=== PATIENT | male | born 1990 | race Caucasian/White ===

== ENCOUNTER 2017-07-11 17:50 | Emergency (ER) | payer OTHER ==
--- NOTE | 2017-07-11 18:10 | ED ---
Psych HPI - General Chief Complaint: Psychiatric Symptoms Stated Complaint: mental health Time Seen by Provider: 07/11/17 18:01 Source: patient, RN notes reviewed Mode of arrival: ambulatory Limitations: no limitations - History of Present Illness Initial Comments: 26-year-old male presents emergency department for psychiatric evaluation. Patient states that he an argument with his and states that this is been building up states that he is very depressed. Patient states that he does get appointment sometimes that he feels that he does not want to live anymore. He denies that he is suicidal at this time or homicidal. Denies illicit drug use or alcohol use. Patient states she does have a counselor though she is not available today. Patient does have status medication so he has not been taking them. Patient denies any physical complaints. Patient is brought to emergency department by mother. - Related Data Home Medications Medication Instructions Recorded Confirmed Beclomethasone Dipropionate [Qvar 1 puff INHALATION RT-BID 12/09/15 07/11/17 40 mcg/puff] Divalproex Sodium [Depakote] 375 mg PO BID 12/09/15 07/11/17 Montelukast Chew [Singulair Chew] 4 mg PO DAILY 12/09/15 07/11/17 Ipratropium-Albuterol Nebulize 3 ml INHALATION RT-QID PRN 07/11/17 07/11/17 [Duoneb 0.5 mg-3 mg/3 ml Soln] Loratadine [Claritin] 10 mg PO DAILY 07/11/17 07/11/17 Testosterone Unknown Dose 1 injection IM Q14D 07/11/17 07/11/17 Allergies Allergy/AdvReac Type Severity Reaction Status Date / Time carbamazepine [From Tegretol] Allergy Rash/Hives Verified 07/11/17 18:36 Review of Systems ROS Statement: Those systems with pertinent positive or pertinent negative responses have been documented in the HPI. ROS Other: All systems not noted in ROS Statement are negative. Past Medical History Past Medical History: Asthma, Seizure Disorder History of Any Multi-Drug Resistant Organisms: None Reported Past Surgical History: No Surgical Hx Reported Past Psychological History: No Psychological Hx Reported Smoking Status: Never smoker Past Alcohol Use History: None Reported, Rare Past Drug Use History: None Reported General Exam Limitations: no limitations General appearance: alert, in no apparent distress Head exam: Present: atraumatic, normocephalic, normal inspection Eye exam: Present: normal appearance, PERRL, EOMI. Absent: scleral icterus, conjunctival injection, periorbital swelling ENT exam: Present: normal exam, normal oropharynx, mucous membranes moist, TM's normal bilaterally, normal external ear exam Neck exam: Present: normal inspection, full ROM. Absent: tenderness, meningismus, lymphadenopathy Respiratory exam: Present: normal lung sounds bilaterally. Absent: respiratory distress, wheezes, rales, rhonchi, stridor Cardiovascular Exam: Present: regular rate, normal rhythm, normal heart sounds. Absent: systolic murmur, diastolic murmur, rubs, gallop, clicks GI/Abdominal exam: Present: soft, normal bowel sounds. Absent: distended, tenderness, guarding, rebound, rigid Psychiatric exam: Present: depressed Skin exam: Present: warm, dry, intact, normal color. Absent: rash Course Vital Signs 07/11/17 17:57 Temperature 98.5 F Pulse Rate 99 Respiratory 18 Rate Blood Pressure 136/75 O2 Sat by Pulse 97 Oximetry Medical Decision Making - Medical Decision Making 26-year-old male present emergency department for psychiatric evaluation. Patient was evaluated by EPS who does not recommend inpatient treatment. Patient be given outpatient resources and patient will be discharged return parameters were discussed. - Lab Data Lab Results 07/11/17 Range/Units 18:40 Urine Opiates Screen Not Detected (NotDetected) Ur Oxycodone Screen Not Detected (NotDetected) Urine Methadone Screen Not Detected (NotDetected) Ur Propoxyphene Screen Not Detected (NotDetected) Ur Barbiturates Screen Not Detected (NotDetected) U Tricyclic Antidepress Not Detected (NotDetected) Ur Phencyclidine Scrn Not Detected (NotDetected) Ur Amphetamines Screen Not Detected (NotDetected) U Methamphetamines Scrn Not Detected (NotDetected) U Benzodiazepines Scrn Not Detected (NotDetected) Urine Cocaine Screen Not Detected (NotDetected) U Marijuana (THC) Screen Not Detected (NotDetected) Disposition Clinical Impression: Adjustment reaction, Depression Disposition: HOME SELF-CARE Condition: Stable Instructions: Depression (ED) Additional Instructions: Please return to the Emergency Department if symptoms worsen or any other concerns. Referrals: Gage Abdi MD [Primary Care Provider] - 1-2 days Time of Disposition: 19:39
[2017-07-11 19:47] VITALS: BP 123/59; PULSE 62; RESP 16; TEMP 97.6
== END 2017-07-11 19:47 | disposition home or self-care (01) ==
LOC: EC 17:50 → EEVIPCON 17:50 → EC 19:47
DX: F43.20 Adjustment disorder, unspecified (principal); F32.9 Major depressive disorder, single episode, unspecified; J45.909 Unspecified asthma, uncomplicated; G40.909 Epilepsy, unspecified, not intractable, without status epilepticus; Z88.8 Allergy status to other drugs, medicaments and biological substances; Z79.51 Long term (current) use of inhaled steroids; Z79.899 Other long term (current) drug therapy
CPT/HCPCS: 80306; 82075; 99284

== ENCOUNTER 2017-10-18 14:37 | Emergency (ER) | payer OTHER ==
[2017-10-18 14:54] VITALS: BP 151/82; PULSE 78; RESP 18; TEMP 98.6
--- NOTE | 2017-10-18 15:10 | ED ---
Psych HPI - General Chief Complaint: Psychiatric Symptoms Stated Complaint: Mental Health Time Seen by Provider: 10/18/17 15:01 Source: patient, RN notes reviewed Mode of arrival: ambulatory - History of Present Illness Initial Comments: This is a 26-year-old male history depression also history of seizures and asthma who states she's been arguing a lot with his recently he was very depressed yesterday he actually has suicidal thoughts and ideation yesterday he states none today he did hit his head against the wall yesterday but denies any headache blurry vision nausea vomiting or other symptoms this time. He is still feeling very depressed he denies any drug drugs or alcohol. He is here for evaluation. MD Complaint: suicidal ideation, feels depressed - Related Data Home Medications Medication Instructions Recorded Confirmed Divalproex Sodium [Depakote] 375 mg PO BID 12/09/15 10/18/17 Loratadine [Claritin] 10 mg PO DAILY 07/11/17 10/18/17 Albuterol Inhaler [Ventolin Hfa 1 puff INHALATION RT-Q6H PRN 10/18/17 10/18/17 Inhaler] Beclomethasone Dipropionate [Qvar 2 puff INHALATION RT-BID 10/18/17 10/18/17 80 mcg] Mirtazapine [Remeron] 15 mg PO HS 10/18/17 10/18/17 Montelukast [Singulair] 10 mg PO DAILY 10/18/17 10/18/17 Ranitidine HCl 150 mg PO BID 10/18/17 10/18/17 Testosterone Cypionate 200 mg IM Q14D 10/18/17 10/18/17 [Depo-Testosterone] Triamcinolone 0.1% Cream [Kenalog] 1 applicatio TOPICAL BID 10/18/17 10/18/17 Allergies Allergy/AdvReac Type Severity Reaction Status Date / Time carbamazepine [From Tegretol] Allergy Rash/Hives Verified 10/18/17 15:09 Review of Systems ROS Statement: Those systems with pertinent positive or pertinent negative responses have been documented in the HPI. ROS Other: All systems not noted in ROS Statement are negative. Past Medical History Past Medical History: Asthma, Seizure Disorder History of Any Multi-Drug Resistant Organisms: None Reported Past Surgical History: No Surgical Hx Reported Past Psychological History: Depression Smoking Status: Never smoker Past Alcohol Use History: Rare Past Drug Use History: None Reported General Exam - General Exam Comments Initial Comments: This is a well-developed well-nourished awake alert oriented times 3 male. The patient x-rays a [place] Coma Scale of 15. Limitations: no limitations General appearance: alert, in no apparent distress Head exam: Present: atraumatic, normocephalic, normal inspection, other (No tenderness palpation of the scalp.) Eye exam: Present: normal appearance, PERRL, EOMI. Absent: scleral icterus, conjunctival injection, periorbital swelling ENT exam: Present: normal exam, mucous membranes moist Neck exam: Present: normal inspection. Absent: tenderness, meningismus, lymphadenopathy Respiratory exam: Present: normal lung sounds bilaterally. Absent: respiratory distress, wheezes, rales, rhonchi, stridor Cardiovascular Exam: Present: regular rate, normal rhythm, normal heart sounds. Absent: systolic murmur, diastolic murmur, rubs, gallop, clicks GI/Abdominal exam: Present: soft, normal bowel sounds. Absent: distended, tenderness, guarding, rebound, rigid Extremities exam: Present: normal inspection, full ROM, normal capillary refill. Absent: tenderness, pedal edema, joint swelling, calf tenderness Back exam: Present: normal inspection Neurological exam: Present: alert, oriented X3, CN II-XII intact Psychiatric exam: Present: depressed, flat affect Skin exam: Present: warm, dry, intact, normal color. Absent: rash Course Vital Signs 10/18/17 14:51 Temperature 98.6 F Pulse Rate 78 Respiratory 18 Rate Blood Pressure 151/82 O2 Sat by Pulse 98 Oximetry Medical Decision Making - Medical Decision Making The patient was evaluated by [facility] and the mobile crisis services. He currently is not suicidal or homicidal. He will be discharged with outpatient treatment. Disposition Clinical Impression: Depression Disposition: HOME SELF-CARE Condition: Good Instructions: Depression (ED), Anxiety (ED) Additional Instructions: Follow-up as per [facility] mobile crisis Referrals: Gage Abdi MD [Primary Care Provider] - 1-2 days
[2017-10-18 16:25] LABS: Amphetamine Screen,Urine Not Detected (NotDetected); Barbiturate Screen,Urine Not Detected (NotDetected); Benzodiazepines Screen,Urine Not Detected (NotDetected); Cocaine Screen,Urine Not Detected (NotDetected); Methadone Screen, Urine Not Detected (NotDetected); Opiate Screen,Urine Not Detected (NotDetected); Oxycodone Screen, Urine Not Detected (NotDetected); Phencyclidine Screen,Urine Not Detected (NotDetected); Tricyclic Antidepressant,Urine Not Detected (NotDetected); Urn Cannabinoid Scrn Not Detected (NotDetected)
== END 2017-10-18 16:45 | disposition home or self-care (01) ==
LOC: EC 14:37
DX: F32.9 Major depressive disorder, single episode, unspecified (principal); J45.909 Unspecified asthma, uncomplicated; G40.909 Epilepsy, unspecified, not intractable, without status epilepticus; R40.2412 Glasgow coma scale score 13-15, at arrival to emergency department; Z88.8 Allergy status to other drugs, medicaments and biological substances; Z79.51 Long term (current) use of inhaled steroids; Z79.899 Other long term (current) drug therapy
CPT/HCPCS: 80306; 82075; 99284

== ENCOUNTER 2017-12-31 00:22 | Emergency (ER) | payer OTHER ==
--- NOTE | 2017-12-31 01:11 | ED ---
General Adult HPI - General Chief complaint: Psychiatric Symptoms Stated complaint: mental health Time Seen by Provider: 12/31/17 00:29 Source: patient, RN notes reviewed, old records reviewed Mode of arrival: ambulatory Limitations: no limitations - History of Present Illness Initial comments: This is a 27-year-old male presenting to the ER today for evaluation of anger, depression, occasional suicide thoughts, not currently suicidal. No drugs or alcohol. Patient coming in for psychiatric evaluation - Related Data Home Medications Medication Instructions Recorded Confirmed Divalproex Sodium [Depakote] 375 mg PO BID 12/09/15 10/18/17 Loratadine [Claritin] 10 mg PO DAILY 07/11/17 10/18/17 Albuterol Inhaler [Ventolin Hfa 1 puff INHALATION RT-Q6H PRN 10/18/17 10/18/17 Inhaler] Beclomethasone Dipropionate [Qvar 2 puff INHALATION RT-BID 10/18/17 10/18/17 80 mcg] Mirtazapine [Remeron] 15 mg PO HS 10/18/17 10/18/17 Montelukast [Singulair] 10 mg PO DAILY 10/18/17 10/18/17 Ranitidine HCl 150 mg PO BID 10/18/17 10/18/17 Testosterone Cypionate 200 mg IM Q14D 10/18/17 10/18/17 [Depo-Testosterone] Triamcinolone 0.1% Cream [Kenalog] 1 applicatio TOPICAL BID 10/18/17 10/18/17 Allergies Allergy/AdvReac Type Severity Reaction Status Date / Time carbamazepine [From Tegretol] Allergy Rash/Hives Verified 12/31/17 00:25 Review of Systems ROS Statement: Those systems with pertinent positive or pertinent negative responses have been documented in the HPI. ROS Other: All systems not noted in ROS Statement are negative. Past Medical History Past Medical History: Asthma, Seizure Disorder History of Any Multi-Drug Resistant Organisms: None Reported Past Surgical History: No Surgical Hx Reported Past Psychological History: Depression Smoking Status: Never smoker Past Alcohol Use History: Rare Past Drug Use History: None Reported General Exam Limitations: no limitations General appearance: alert, in no apparent distress Head exam: Present: atraumatic, normocephalic, normal inspection Eye exam: Present: normal appearance, PERRL, EOMI. Absent: scleral icterus, conjunctival injection, periorbital swelling ENT exam: Present: normal exam, mucous membranes moist Neck exam: Present: normal inspection. Absent: tenderness, meningismus, lymphadenopathy Respiratory exam: Present: normal lung sounds bilaterally. Absent: respiratory distress, wheezes, rales, rhonchi, stridor Cardiovascular Exam: Present: regular rate, normal rhythm, normal heart sounds. Absent: systolic murmur, diastolic murmur, rubs, gallop, clicks GI/Abdominal exam: Present: soft, normal bowel sounds. Absent: distended, tenderness, guarding, rebound, rigid Extremities exam: Present: normal inspection, full ROM, normal capillary refill. Absent: tenderness, pedal edema, joint swelling, calf tenderness Back exam: Present: normal inspection Neurological exam: Present: alert, oriented X3, CN II-XII intact Psychiatric exam: Present: normal affect, normal mood Skin exam: Present: warm, dry, intact, normal color. Absent: rash Course Vital Signs 12/31/17 00:24 Temperature 98 F Pulse Rate 89 Respiratory 20 Rate Blood Pressure 141/89 O2 Sat by Pulse 98 Oximetry Medical Decision Making - Medical Decision Making 27 male the ER for psychiatric evaluation, patient seen by psychiatric team here in the ER, okay to follow up on an outpatient basis, no threat to himself or others. - Lab Data Lab Results 12/31/17 Range/Units 01:07 Urine Opiates Screen Not Detected (NotDetected) Ur Oxycodone Screen Not Detected (NotDetected) Urine Methadone Screen Not Detected (NotDetected) Ur Propoxyphene Screen Not Detected (NotDetected) Ur Barbiturates Screen Not Detected (NotDetected) U Tricyclic Antidepress Not Detected (NotDetected) Ur Phencyclidine Scrn Not Detected (NotDetected) Ur Amphetamines Screen Not Detected (NotDetected) U Methamphetamines Scrn Not Detected (NotDetected) U Benzodiazepines Scrn Not Detected (NotDetected) Urine Cocaine Screen Not Detected (NotDetected) U Marijuana (THC) Screen Not Detected (NotDetected) Disposition Clinical Impression: Depression, Adjustment reaction Disposition: HOME SELF-CARE Condition: Good Instructions: Depression (ED) Referrals: Gage Abdi MD [Primary Care Provider] - 1-2 days
[2017-12-31 01:35] LABS: Amphetamine Screen,Urine Not Detected (NotDetected); Barbiturate Screen,Urine Not Detected (NotDetected); Benzodiazepines Screen,Urine Not Detected (NotDetected); Cocaine Screen,Urine Not Detected (NotDetected); Methadone Screen, Urine Not Detected (NotDetected); Opiate Screen,Urine Not Detected (NotDetected); Oxycodone Screen, Urine Not Detected (NotDetected); Phencyclidine Screen,Urine Not Detected (NotDetected); Tricyclic Antidepressant,Urine Not Detected (NotDetected); Urn Cannabinoid Scrn Not Detected (NotDetected)
[2017-12-31 02:53] VITALS: BP 133/79; PULSE 95; RESP 18; TEMP 98.4
== END 2017-12-31 02:52 | disposition home or self-care (01) ==
LOC: EC 00:22
DX: F43.20 Adjustment disorder, unspecified (principal); F32.9 Major depressive disorder, single episode, unspecified; R45.851 Suicidal ideations; J45.909 Unspecified asthma, uncomplicated; G40.909 Epilepsy, unspecified, not intractable, without status epilepticus; Z79.51 Long term (current) use of inhaled steroids; Z79.899 Other long term (current) drug therapy; Z88.8 Allergy status to other drugs, medicaments and biological substances
CPT/HCPCS: 80306; 82075; 99284

== ENCOUNTER 2018-03-16 22:24 | Emergency (ER) | payer OTHER ==
[2018-03-16 22:39] VITALS: RESP 18
--- NOTE | 2018-03-16 23:05 | XR ---
EXAMINATION TYPE: XR hand complete LT DATE OF EXAM: 03/16/2018 COMPARISON: NONE HISTORY: Metacarpal pain TECHNIQUE: 3 views FINDINGS: I see no fracture nor dislocation. Metacarpals are intact. There are no erosions. Carpal don meron are intact. IMPRESSION: Negative left hand exam.
--- NOTE | 2018-03-16 23:30 | ED ---
General Adult HPI - General Chief complaint: Extremity Injury, Upper Stated complaint: Hand Injury Time Seen by Provider: 03/16/18 22:50 Source: patient, RN notes reviewed, old records reviewed Mode of arrival: ambulatory Limitations: no limitations - History of Present Illness Initial comments: This is a 27-year-old male the ER for evaluation. Patient has left hand pain left hand injury secondary to punching wall. Patient's complaining of pain and swelling to his left hand. No other complaints - Related Data Home Medications Medication Instructions Recorded Confirmed Divalproex Sodium [Depakote] 375 mg PO BID 12/09/15 10/18/17 Loratadine [Claritin] 10 mg PO DAILY 07/11/17 10/18/17 Albuterol Inhaler [Ventolin Hfa 1 puff INHALATION RT-Q6H PRN 10/18/17 10/18/17 Inhaler] Beclomethasone Dipropionate [Qvar 2 puff INHALATION RT-BID 10/18/17 10/18/17 80 mcg] Mirtazapine [Remeron] 15 mg PO HS 10/18/17 10/18/17 Montelukast [Singulair] 10 mg PO DAILY 10/18/17 10/18/17 Ranitidine HCl 150 mg PO BID 10/18/17 10/18/17 Testosterone Cypionate 200 mg IM Q14D 10/18/17 10/18/17 [Depo-Testosterone] Triamcinolone 0.1% Cream [Kenalog] 1 applicatio TOPICAL BID 10/18/17 10/18/17 Allergies Allergy/AdvReac Type Severity Reaction Status Date / Time carbamazepine [From Tegretol] Allergy Rash/Hives Verified 03/16/18 22:38 Review of Systems ROS Statement: Those systems with pertinent positive or pertinent negative responses have been documented in the HPI. ROS Other: All systems not noted in ROS Statement are negative. Past Medical History Past Medical History: Asthma, Seizure Disorder History of Any Multi-Drug Resistant Organisms: None Reported Past Surgical History: No Surgical Hx Reported Past Psychological History: Depression Smoking Status: Never smoker Past Alcohol Use History: Rare Past Drug Use History: None Reported General Exam Limitations: no limitations General appearance: alert, in no apparent distress Head exam: Present: atraumatic, normocephalic, normal inspection Eye exam: Present: normal appearance, PERRL, EOMI. Absent: scleral icterus, conjunctival injection, periorbital swelling ENT exam: Present: normal exam, mucous membranes moist Neck exam: Present: normal inspection. Absent: tenderness, meningismus, lymphadenopathy Respiratory exam: Present: normal lung sounds bilaterally. Absent: respiratory distress, wheezes, rales, rhonchi, stridor Cardiovascular Exam: Present: regular rate, normal rhythm, normal heart sounds. Absent: systolic murmur, diastolic murmur, rubs, gallop, clicks GI/Abdominal exam: Present: soft, normal bowel sounds. Absent: distended, tenderness, guarding, rebound, rigid Extremities exam: Present: normal inspection, full ROM, normal capillary refill , other ((Tender and edema). Absent: tenderness, pedal edema, joint swelling, calf tenderness Back exam: Present: normal inspection Neurological exam: Present: alert, oriented X3, CN II-XII intact Psychiatric exam: Present: normal affect, normal mood Skin exam: Present: warm, dry, intact, normal color. Absent: rash Course Vital Signs 03/16/18 22:35 Temperature 98.7 F Pulse Rate 84 Respiratory 18 Rate Blood Pressure 143/87 O2 Sat by Pulse 97 Oximetry Medical Decision Making - Medical Decision Making Plan I male the ER for evaluation, punching wall, no fracture noted. Patient can be discharged home, continued ice rest and anti-inflammatories - Radiology Data Radiology results: report reviewed (Left hand x-ray negative for traumatic injury), image reviewed Disposition Clinical Impression: Contusion of left hand Disposition: HOME SELF-CARE Condition: Good Instructions: Contusion in Adults (ED) Is patient prescribed a controlled substance at d/c from ED?: No Referrals: Gage Abdi MD [Primary Care Provider] - 1-2 days
[2018-03-17 02:07] VITALS: BP 129/79; PULSE 77; TEMP 98.4
== END 2018-03-17 02:07 | disposition home or self-care (01) ==
LOC: EC 22:24
DX: S60.222A Contusion of left hand, initial encounter (principal); J45.909 Unspecified asthma, uncomplicated; G40.909 Epilepsy, unspecified, not intractable, without status epilepticus; Z79.51 Long term (current) use of inhaled steroids; Z79.890 Hormone replacement therapy; Z79.899 Other long term (current) drug therapy; Z88.8 Allergy status to other drugs, medicaments and biological substances; W22.01XA Walked into wall, initial encounter
CPT/HCPCS: 82075; 99284

== ENCOUNTER → 2019-02-02 | Outpatient (CLI) | payer OTHER ==
--- NOTE | 2019-02-02 12:09 | CONS ---
CONSULTATION DATE OF SERVICE: 02/02/2019 This 28-year-old gentleman had been evaluated in the sleep center for significant excessive daytime sleepiness and multiple awakenings from sleep. HISTORY OF PRESENT ILLNESS/SLEEP-WAKE EVALUATION: Patient has irregular sleep schedule usually goes to bed around 1 or to 3 a.m. and gets out of bed at 5:30 a.m. because his wakes up at that time and then he sleeps again from 10:30 a.m. until 1 p.m. He has mild snoring. He has multiple awakenings from sleep. Some of them related to the baby at home. Positive history of episodes of sleepwalking and sleep talking. Questionable history of hypnagogic hallucinations. During the naps, patient denied any significant dreams. During the day, he is extremely sleepy. [place] Sleepiness Scale is 24. PAST MEDICAL HISTORY: Positive for epilepsy, asthma, acid reflux, mildly mentally impairment. MEDICATIONS: Divalproex, ranitidine, montelukast, vitamin D supplement. SOCIAL HISTORY: Negative for smoking or using alcohol. FAMILY HISTORY: Hypertension, diabetes, mental illness, cancer. REVIEW OF SYSTEMS: Extreme sleepiness during the day. PHYSICAL EXAMINATION: During physical exam, a gentleman without distress. VITAL SIGNS: BP 127/64, HR 86, RR 16, height 5 feet 7 inches, weight 238 pounds, body mass index 37.2, temperature 96.9, oxygen saturation at room air 97%. HEENT: PERRLA, EOMI. Oropharynx low position of soft palate. Mallampati 3. Restriction of nasal breathing. Wide neck 18 inches in circumference. NECK: Supple, no JVD. Thyroid is not palpable. LUNGS: Clear to percussion and to auscultation. Good air exchange. No wheezing or rhonchi. HEART: S1, S2 regular. No murmurs, gallops, or rubs. ABDOMEN: Slightly obese. EXTREMITIES: No clubbing or cyanosis. MANAGER CASE: Awake, alert, and oriented X3. Cranial nerves 2 to 7 intact. There is no fasciculation or atrophy. noted. No focal deficits observed. IMPRESSION: 1. Snoring, multiple awakenings from sleep, low position of soft palate, wide neck, possible obstructive sleep apnea-hypopnea syndrome. 2. Significant excessive daytime sleepiness. [place] Sleepiness Scale is in extremely high range of 24. Differential diagnosis includes hypersomnia and narcolepsy. 3. Irregular sleep schedule with possible insufficient amount of sleep. 4. History of mildly mentally impairments since childhood. 5. History of epilepsy. 6. History of asthma. 7. Acid reflux. PLAN: 1. Polysomnography for evaluation of patient's breathing during sleep. 2. CPAP/BiPAP titration if sleep study confirms obstructive sleep apnea-hypopnea syndrome. 3. Preferable position during sleep on the side. 4. No driving if patient feels any sleepiness. 5. I will see patient for follow up visit to explain results of testing and following plan. 6. Multiple sleep latency test if sleep study will be negative for obstructive sleep apnea-hypopnea syndrome. Thank you very much for referring this patient for consultation. Sincerely, Ad Sheth MD, PhD, FAASM Diplomat of [employer] [employer] [employer] Copy Reader of [facility] [place] MMODL / MEGN: [id number] /
== END | disposition home or self-care (01) ==
LOC: SLEEP 10:33
PROVIDERS: ATTEND Internal Medicine
DX: M27.8 Other specified diseases of jaws (principal); R40.0 Somnolence; R06.83 Snoring; G47.23 Circadian rhythm sleep disorder, irregular sleep wake type; G40.909 Epilepsy, unspecified, not intractable, without status epilepticus; J45.909 Unspecified asthma, uncomplicated; K21.9 Gastro-esophageal reflux disease without esophagitis; Z86.59 Personal history of other mental and behavioral disorders; E66.9 Obesity, unspecified; Z79.899 Other long term (current) drug therapy; Z83.3 Family history of diabetes mellitus; Z68.37 Body mass index [BMI] 37.0-37.9, adult
CPT/HCPCS: 99211

== ENCOUNTER 2020-03-16 19:50 | Emergency (ER) | payer OTHER ==
[2020-03-16 20:09] VITALS: BP 133/86; PULSE 94; RESP 20; TEMP 98.3
--- NOTE | 2020-03-16 21:14 | ED ---
General Adult HPI - General Chief complaint: Psychiatric Symptoms Stated complaint: Mental health Time Seen by Provider: 03/16/20 20:14 Source: patient Mode of arrival: ambulatory Limitations: no limitations - History of Present Illness Initial comments: Dictation was produced using Clicker dictation software. please excuse any grammatical, word or spelling errors. This patient was cared for during a federal and state declared state of emergency secondary to Covid 19 Chief Complaint: 29-year-old male presents with depression. History of Present Illness: 29-year-old male presents today with depression. Patient states he feels guilty about Wednesday he got caught looking on the computer. He states that it upset his . Patient feels really guilty about that he's been depressed and presents today for his depression. Patient has any suicidal or homicidal ideation. Denies any visual auditory hallucinations. Patient does not go into detail about what he feels guilty about. Patient also complains of some numbness ongoing for several months of his third and fourth toe on his left foot. States that he feels a little tingly in the toes. He is not sure if he stubbed his foot several months ago. The ROS documented in this emergency department record has been reviewed and confirmed by me. Those systems with pertinent positive or negative responses have been documented in the HPI. All other systems are other negative and/or noncontributory. PHYSICAL EXAM: General Impression: Alert and oriented x3, not in acute distress HEENT: Normocephalic atraumatic, extra-ocular movements intact, pupils equal and reactive to light bilaterally, mucous membranes moist. Cardiovascular: Heart regular rate and rhythm Chest: Able to complete full sentences, no retractions, no tachypnea Abdomen: abdomen soft, non-tender, non-distended, no organomegaly Musculoskeletal: Pulses present and equal in all extremities, no peripheral edema Left foot: Does appear to have good cap refill. Radial pulse and PT pulses are palpable Motor: no focal deficits noted Neurological: CN II-XII grossly intact, no focal motor or sensory deficits noted Skin: Intact with no visualized rashes Psych: Normal affect and mood ED course: 29-year-old male presents with depression. Patient psych stable at this time is not exhibiting any signs of psychosis. Patient not suicidal or homicidal. Vital signs upon arrival are within acceptable limits. Foot x-rays are unremarkable. Patient medically cleared for EPS evaluation.Patient was advised by EPS. Patient will be discharged. He does have outpatient counseling with the [facility]. Patient is agreeable with plan. - Related Data Home Medications Medication Instructions Recorded Confirmed Divalproex Sodium [Depakote] 375 mg PO BID 12/09/15 10/18/17 Loratadine [Claritin] 10 mg PO DAILY 07/11/17 10/18/17 Albuterol Inhaler (Mhu) [Ventolin 1 puff INHALATION RT-Q6H PRN 10/18/17 10/18/17 Hfa Inhaler] Beclomethasone Dipropionate [Qvar 2 puff INHALATION RT-BID 10/18/17 10/18/17 80 mcg] Mirtazapine [Remeron] 15 mg PO HS 10/18/17 10/18/17 Montelukast [Singulair] 10 mg PO DAILY 10/18/17 10/18/17 Ranitidine HCl 150 mg PO BID 10/18/17 10/18/17 Testosterone Cypionate 200 mg IM Q14D 10/18/17 10/18/17 [Depo-Testosterone] Triamcinolone 0.1% Cream [Kenalog 1 applicatio TOPICAL BID 10/18/17 10/18/17 0.1% Cream] Allergies Allergy/AdvReac Type Severity Reaction Status Date / Time carbamazepine [From Tegretol] Allergy Rash/Hives Verified 03/16/20 20:09 Review of Systems ROS Statement: Those systems with pertinent positive or pertinent negative responses have been documented in the HPI. ROS Other: All systems not noted in ROS Statement are negative. Past Medical History Past Medical History: Asthma, Seizure Disorder History of Any Multi-Drug Resistant Organisms: None Reported Past Surgical History: No Surgical Hx Reported Past Psychological History: Depression Smoking Status: Never smoker Past Alcohol Use History: Rare Past Drug Use History: None Reported General Exam Limitations: no limitations Course Vital Signs 03/16/20 20:05 Temperature 98.3 F Pulse Rate 94 Respiratory 20 Rate Blood Pressure 133/86 O2 Sat by Pulse 99 Oximetry Disposition Clinical Impression: Depression Disposition: HOME SELF-CARE Condition: Good Instructions (If sedation given, give patient instructions): Depression (ED) Is patient prescribed a controlled substance at d/c from ED?: No Referrals: Gage Abdi MD [Primary Care Provider] - 1-2 days Time of Disposition: 00:35
--- NOTE | 2020-03-16 21:23 | XR ---
EXAMINATION TYPE: XR foot complete LT DATE OF EXAM: 03/16/2020 COMPARISON: NONE HISTORY: 29-year-old male stubbed toe 2 months ago, pain TECHNIQUE: 3 views FINDINGS: No acute fracture, subluxation, or dislocation is seen. No periostitis or osteolysis. IMPRESSION: No acute osseous abnormality seen.
== END 2020-03-17 01:32 | disposition home or self-care (01) ==
LOC: EC 19:50
DX: F32.9 Major depressive disorder, single episode, unspecified (principal); R20.0 Anesthesia of skin; R20.2 Paresthesia of skin; J45.909 Unspecified asthma, uncomplicated; G40.909 Epilepsy, unspecified, not intractable, without status epilepticus; Z79.899 Other long term (current) drug therapy; Z88.8 Allergy status to other drugs, medicaments and biological substances
CPT/HCPCS: 82075; 99284

== ENCOUNTER 2020-12-24 05:18 | Inpatient (IN) | payer OTHER ==
[2020-12-24] MEDS ORDERED: ALBUTEROL HFA INHALER INHALATION STA (05:45)
[2020-12-24] MEDS ORDERED: ACETAMINOPHEN TAB 500 MG TAB PO STA (05:45)
[2020-12-24] MEDS ORDERED: KETOROLAC 15 MG/ML 1 ML VIAL IVP STA (05:46)
[2020-12-24] MEDS ORDERED: DEXAMETHASONE SOD PHOSPHATE 10 MG/ML 1 ML VIAL IV STA (05:46)
[2020-12-24] MEDS ORDERED: SODIUM CHLORIDE 0.9% 500 ML 500 ML IV STA (05:46)
[2020-12-24] MEDS ORDERED: SODIUM CHLORIDE 0.9% 1,000 ML IV STA ×4 (05:46→06:57)
--- NOTE | 2020-12-24 05:46 | ED ---
Fever HPI - General Chief Complaint: Upper Respiratory Infection Stated Complaint: Cough Time Seen by Provider: 12/24/20 05:23 Source: patient, RN notes reviewed, old records reviewed Mode of arrival: ambulatory Limitations: no limitations - History of Present Illness Initial Comments: This is a 30-year-old male to the ER for evaluation patient comes in today for evaluation regarding severe shortness of breath. Patient states that he has no other significant complaints. Patient has shortness of breath persistent here in the ER with fever weakness. Patient denies coronavirus contact. Does have history of asthma and has had prior pneumonia MD Complaint: fever, malaise, weakness -: days(s) Temperature Source: subjective Context: sick contacts Associated Symptoms: myalgias, sore throat, cough, chest pain, shortness of breath Treatments Prior to Arrival: none - Related Data Home Medications Medication Instructions Recorded Confirmed Loratadine [Claritin] 10 mg PO HS 07/11/17 12/24/20 Montelukast [Singulair] 10 mg PO HS 10/18/17 12/24/20 Cholecalciferol (Vitamin D3) 125 mcg PO HS 12/24/20 12/24/20 [Vitamin D3 (5000 Iu)] Divalproex ER [Depakote ER] 500 mg PO BID 12/24/20 12/24/20 Ergocalciferol [Vitamin D2 (1250 1,250 mcg PO TU 12/24/20 12/24/20 Mcg = 41374 Iu)] Omeprazole 20 mg PO HS 12/24/20 12/24/20 Allergies Allergy/AdvReac Type Severity Reaction Status Date / Time carbamazepine [From Tegretol] Allergy Rash/Hives Verified 12/24/20 07:16 Review of Systems ROS Statement: Those systems with pertinent positive or pertinent negative responses have been documented in the HPI. ROS Other: All systems not noted in ROS Statement are negative. Past Medical History Past Medical History: Asthma, Seizure Disorder History of Any Multi-Drug Resistant Organisms: None Reported Past Surgical History: No Surgical Hx Reported Past Psychological History: Depression Smoking Status: Never smoker Past Alcohol Use History: Rare Past Drug Use History: None Reported - Past Family History Father History Unknown: Yes Family Medical History: Unable to Obtain Additional Family Medical History / Comment(s): Pt does not know his father. Mother Family Medical History: Diabetes Mellitus General Exam Limitations: no limitations General appearance: alert, in no apparent distress, anxious Head exam: Present: atraumatic, normocephalic, normal inspection Eye exam: Present: normal appearance, PERRL, EOMI. Absent: scleral icterus, conjunctival injection, periorbital swelling ENT exam: Present: normal exam, mucous membranes moist Neck exam: Present: normal inspection. Absent: tenderness, meningismus, lymphadenopathy Respiratory exam: Present: respiratory distress, wheezes, accessory muscle use, decreased breath sounds, prolonged expiratory. Absent: rales, rhonchi, stridor Cardiovascular Exam: Present: normal rhythm, tachycardia, normal heart sounds. Absent: systolic murmur, diastolic murmur, rubs, gallop, clicks GI/Abdominal exam: Present: soft, normal bowel sounds. Absent: distended, tenderness, guarding, rebound, rigid Extremities exam: Present: normal inspection, full ROM, normal capillary refill. Absent: tenderness, pedal edema, joint swelling, calf tenderness Back exam: Present: normal inspection Neurological exam: Present: alert, oriented X3, CN II-XII intact Psychiatric exam: Present: normal affect, normal mood Skin exam: Present: warm, dry, intact, normal color. Absent: rash Course Vital Signs 12/24/20 12/24/20 12/24/20 05:20 05:43 06:13 Temperature 101.4 F H 102.3 F H 102 F H Pulse Rate 126 H 120 H 122 H Respiratory 26 H 18 18 Rate Blood Pressure 121/69 126/74 100/87 O2 Sat by Pulse 90 L 94 L 91 L Oximetry 12/24/20 12/24/20 12/24/20 07:32 08:14 08:17 Temperature 100.2 F H Pulse Rate 115 H 111 H 94 Respiratory 18 18 18 Rate Blood Pressure 113/66 130/70 O2 Sat by Pulse 95 94 L 94 L Oximetry 12/24/20 12/24/20 12/24/20 08:22 10:59 11:30 Temperature 98.5 F Pulse Rate 115 H 95 89 Respiratory 16 18 16 Rate Blood Pressure 132/74 O2 Sat by Pulse 93 L Oximetry 12/24/20 12/24/20 12/24/20 11:42 11:45 15:01 Temperature Pulse Rate 103 H 98 98 Respiratory 18 18 18 Rate Blood Pressure 149/43 107/58 O2 Sat by Pulse 95 97 Oximetry 12/24/20 12/24/20 12/24/20 15:23 15:33 17:36 Temperature 98.4 F Pulse Rate 101 H 81 97 Respiratory 18 16 18 Rate Blood Pressure 108/67 O2 Sat by Pulse 95 Oximetry 12/24/20 12/24/20 18:57 19:10 Temperature Pulse Rate 81 87 Respiratory 16 16 Rate Blood Pressure O2 Sat by Pulse Oximetry - Reevaluation(s) Reevaluation #1: Medical record is reviewed Patient feels significantly improved well here in the ER Patient spoke with results, questions answered Patient is shortness of breath is persistent, will admit for continued care Medical Decision Making - Medical Decision Making 30 male DF for evaluation of shortness of breath. Patient will be admitted for continued supportive care, IV antibiotics secondary to clinical pneumonia treatment of asthma - Lab Data Result diagrams: 12/24/20 06:02 12/24/20 06:02 Lab Results 12/24/20 12/24/20 12/24/20 Range/Units 06:02 06:02 06:02 WBC 19.6 H (3.8-10.6) k/uL RBC 5.10 (4.30-5.90) m/uL Hgb 14.5 (13.0-17.5) gm/dL Hct 41.9 (39.0-53.0) % MCV 82.1 (80.0-100.0) fL MCH 28.5 (25.0-35.0) pg MCHC 34.7 (31.0-37.0) g/dL RDW 12.9 (11.5-15.5) % Plt Count 287 (150-450) k/uL MPV 6.4 Neutrophils % 87 % Lymphocytes % 7 % Monocytes % 5 % Eosinophils % 0 % Basophils % 0 % Neutrophils # 17.2 H (1.3-7.7) k/uL Lymphocytes # 1.3 (1.0-4.8) k/uL Monocytes # 0.9 (0-1.0) k/uL Eosinophils # 0.1 (0-0.7) k/uL Basophils # 0.0 (0-0.2) k/uL PT 11.0 (9.0-12.0) sec INR 1.0 (<1.2) APTT 23.4 (22.0-30.0) sec D-Dimer <0.17 (<0.60) mg/L FEU Sodium 135 L (137-145) mmol/L Potassium 3.8 (3.5-5.1) mmol/L Chloride 101 (98-107) mmol/L Carbon Dioxide 24 (22-30) mmol/L Anion Gap 10 mmol/L BUN 18 (9-20) mg/dL Creatinine 0.68 (0.66-1.25) mg/dL Est GFR (CKD-EPI)AfAm >90 (>60 ml/min/1.73 sqM) Est GFR (CKD-EPI)NonAf >90 (>60 ml/min/1.73 sqM) Glucose 105 H (74-99) mg/dL Plasma Lactic Acid Christiano (0.7-2.0) mmol/L Calcium 10.4 H (8.4-10.2) mg/dL Magnesium 1.5 L (1.6-2.3) mg/dL Total Bilirubin 1.9 H (0.2-1.3) mg/dL AST 37 (17-59) U/L ALT 36 (4-49) U/L Alkaline Phosphatase 150 H (38-126) U/L Lactate Dehydrogenase 542 (313-618) U/L C-Reactive Protein 162.8 H (<10.0) mg/L Total Protein 8.0 (6.3-8.2) g/dL Albumin 4.8 (3.5-5.0) g/dL Coronavirus (PCR) (Not Detectd) 12/24/20 12/24/20 Range/Units 06:02 06:02 WBC (3.8-10.6) k/uL RBC (4.30-5.90) m/uL Hgb (13.0-17.5) gm/dL Hct (39.0-53.0) % MCV (80.0-100.0) fL MCH (25.0-35.0) pg MCHC (31.0-37.0) g/dL RDW (11.5-15.5) % Plt Count (150-450) k/uL MPV Neutrophils % % Lymphocytes % % Monocytes % % Eosinophils % % Basophils % % Neutrophils # (1.3-7.7) k/uL Lymphocytes # (1.0-4.8) k/uL Monocytes # (0-1.0) k/uL Eosinophils # (0-0.7) k/uL Basophils # (0-0.2) k/uL PT (9.0-12.0) sec INR (<1.2) APTT (22.0-30.0) sec D-Dimer (<0.60) mg/L FEU Sodium (137-145) mmol/L Potassium (3.5-5.1) mmol/L Chloride (98-107) mmol/L Carbon Dioxide (22-30) mmol/L Anion Gap mmol/L BUN (9-20) mg/dL Creatinine (0.66-1.25) mg/dL Est GFR (CKD-EPI)AfAm (>60 ml/min/1.73 sqM) Est GFR (CKD-EPI)NonAf (>60 ml/min/1.73 sqM) Glucose (74-99) mg/dL Plasma Lactic Acid Christiano 1.1 (0.7-2.0) mmol/L Calcium (8.4-10.2) mg/dL Magnesium (1.6-2.3) mg/dL Total Bilirubin (0.2-1.3) mg/dL AST (17-59) U/L ALT (4-49) U/L Alkaline Phosphatase (38-126) U/L Lactate Dehydrogenase (313-618) U/L C-Reactive Protein (<10.0) mg/L Total Protein (6.3-8.2) g/dL Albumin (3.5-5.0) g/dL Coronavirus (PCR) Not Detected (Not Detectd) - EKG Data -: EKG Interpreted by Me (EKG shows sinus tachycardia of 111, HI 1:30 QRS 108 QTc 456) - Radiology Data Radiology results: report reviewed (Chest x-ray for bilateral pneumonia), image reviewed Disposition Clinical Impression: Community acquired pneumonia, Asthmatic bronchitis, Fever Narrative: r COVID Disposition: ADMITTED IP TO THIS HOSP Condition: Fair Is patient prescribed a controlled substance at d/c from ED?: No
[2020-12-24 06:31] LABS: ALT 36 U/L (4-49); AST 37 U/L (17-59); African American GFR (CKD) >90 (>60 ml/min/1.73 sqM); Albumin 4.8 g/dL (3.5-5.0); Alkaline Phosphatase 150 U/L (38-126); Anion Gap 10 mmol/L; Blood Urea Nitrogen 18 mg/dL (9-20); Calcium 10.4 mg/dL (8.4-10.2); Carbon Dioxide 24 mmol/L (22-30); Chloride 101 mmol/L (98-107); Glucose 105 mg/dL (74-99); LDH 542 U/L (313-618); Magnesium 1.5 mg/dL (1.6-2.3); Non-African American GFR(CKD) >90 (>60 ml/min/1.73 sqM); Potassium 3.8 mmol/L (3.5-5.1); Sodium 135 mmol/L (137-145); Total Bilirubin 1.9 mg/dL (0.2-1.3)
[2020-12-24 06:37] LABS: Basophils % (A) 0 %; Eosinophils # (A) 0.1 k/uL (0-0.7); Eosinophils % (A) 0 %; HCT 41.9 % (39.0-53.0); HGB 14.5 gm/dL (13.0-17.5); Lymphocytes # (A) 1.3 k/uL (1.0-4.8); Lymphocytes % (A) 7 %; MCH 28.5 pg (25.0-35.0); MCHC 34.7 g/dL (31.0-37.0); MCV 82.1 fL (80.0-100.0); Mean Platelet Volume 6.4; Monocytes # (A) 0.9 k/uL (0-1.0); Monocytes % (A) 5 %; Neutrophils # (A) 17.2 k/uL (1.3-7.7); Neutrophils % (A) 87 %; Platelet Count 287 k/uL (150-450); RDW 12.9 % (11.5-15.5); WBC 19.6 k/uL (3.8-10.6)
[2020-12-24 06:43] LABS: D-Dimer <0.17 mg/L FEU (<0.60); Partial Thromboplastin Time 23.4 sec (22.0-30.0)
[2020-12-24] MEDS ORDERED: PNEUMONIA PROTOCOL UTILIZED 1 EACH MISC PO PRN (06:57)
[2020-12-24] MEDS ORDERED: AZITHROMYCIN 500 MG in SODIUM CHLORIDE 0.9% 250 ML IVPB STA (06:57)
--- NOTE | 2020-12-24 07:04 | XR ---
EXAM: XR Chest, 1 View CLINICAL HISTORY: ITS.REASON XR Reason: Suspected COVID-19 pneumonia TECHNIQUE: Frontal view of the chest. COMPARISON: No relevant prior studies available. FINDINGS: Lungs: Bibasilar patchy opacities. Pleural space: Unremarkable. No pneumothorax. Heart: Unremarkable. No cardiomegaly. Mediastinum: Unremarkable. Bones/joints: Unremarkable. IMPRESSION: Bibasilar patchy opacities which may be due to multifocal infection in the appropriate clinical setting.
[2020-12-24 07:22] LABS: C Reactive Protein 162.8 mg/L (<10.0)
[2020-12-24] MEDS: SODIUM CHLORIDE 0.9% 1,000 ML IV SCH ×2 (07:36→17:40)
[2020-12-24] MEDS: ALBUTEROL NEBULIZED 2.5 MG/3 ML INHALATION SCH ×4 (08:11→18:54)
[2020-12-24] MEDS: IPRATROPIUM-ALBUTEROL 3 ML NEB INHALATION SCH ×4 (08:12→18:56)
--- NOTE | 2020-12-24 13:57 | P.HPIM ---
History of Present Illness This is a pleasant 30 years old male with past medical history of asthma, GERD, pneumonia and seizure, depression, nonsmoker. He is a patient of Dr. Abdi Presented because of coughing, not feeling well. Associated with dyspnea since Wednesday night about 3 days ago. Also he has sweating but no documented fever He denies smoking, alcohol or illicit drugs He denies and symptoms of depression or suicidal ideation On admission he has a fever of 102.3. He has normal rest of vitals. Labs showed leukocytosis of 19.6. Rest of CBC, BMP and liver enzymes are unremarkable. Lactic acid is normal at 1.1 and magnesium was low at 1.5 which is been replaced per protocol. Coronavirus not detected 2 D-dimer is negative for less than 0.17 EKG showed sinus tachycardia at [address] T changes, QTC is 456 Chest x-ray: By basilar patchy opacity which may be due to multifocal infection in the appropriate clinical setting Depression, not in active tissue Review of Systems CONSTITUTIONAL: No fever, no malaise, no fatigue. HEENT: No recent visual problems or hearing problems. Denied any sore throat. CARDIOVASCULAR: No orthopnea, PND, no palpitations, no syncope. PULMONARY: No chest wall tenderness, no hemoptysis. GASTROINTESTINAL: No diarrhea, no nausea, no vomiting, no abdominal pain. Normoactive bowel sounds. NEUROLOGICAL: No headaches, no weakness, no numbness. HEMATOLOGICAL: Denies any bleeding or petechiae. GENITOURINARY: Denies any burning micturition, frequency, or urgency. MUSCULOSKELETAL/RHEUMATOLOGICAL: Denies any joint pain, swelling, or any muscle pain. ENDOCRINE: Denies any polyuria or polydipsia. Past Medical History Past Medical History: Asthma, GERD/Reflux, Pneumonia, Seizure Disorder Additional Past Medical History / Comment(s): Bronchitis, last seizure many years ago, gallstones, sinus allergies. History of Any Multi-Drug Resistant Organisms: None Reported Past Surgical History: No Surgical Hx Reported Past Anesthesia/Blood Transfusion Reactions: Unable to Obtain Additional Past Anesthesia/Blood Transfusion Reaction / Comment(s): Pt has never had surgery Smoking Status: Never smoker - Past Family History Father History Unknown: Yes Family Medical History: Unable to Obtain Additional Family Medical History / Comment(s): Pt does not know his father. Mother Family Medical History: Diabetes Mellitus Medications and Allergies Home Medications Medication Instructions Recorded Confirmed Type Loratadine [Claritin] 10 mg PO HS 07/11/17 12/24/20 History Montelukast [Singulair] 10 mg PO HS 10/18/17 12/24/20 History Cholecalciferol (Vitamin D3) 125 mcg PO HS 12/24/20 12/24/20 History [Vitamin D3 (5000 Iu)] Divalproex ER [Depakote ER] 500 mg PO BID 12/24/20 12/24/20 History Ergocalciferol [Vitamin D2 (1250 1,250 mcg PO TU 12/24/20 12/24/20 History Mcg = 47054 Iu)] Omeprazole 20 mg PO HS 12/24/20 12/24/20 History Allergies Allergy/AdvReac Type Severity Reaction Status Date / Time carbamazepine [From Tegretol] Allergy Rash/Hives Verified 12/24/20 07:16 Physical Exam Vitals: Vital Signs Temp Pulse Resp BP Pulse Ox 12/24/20 11:45 98 18 149/43 95 12/24/20 11:42 103 H 18 12/24/20 11:30 89 16 12/24/20 10:59 98.5 F 95 18 132/74 93 L 12/24/20 08:22 115 H 16 12/24/20 08:17 94 18 130/70 94 L 12/24/20 08:14 111 H 18 94 L 12/24/20 07:32 100.2 F H 115 H 18 113/66 95 12/24/20 06:13 102 F H 122 H 18 100/87 91 L 12/24/20 05:43 102.3 F H 120 H 18 126/74 94 L 12/24/20 05:20 101.4 F H 126 H 26 H 121/69 90 L Intake and Output 12/23/20 12/24/20 12/24/20 22:59 06:59 14:59 Other: Weight 108.862 kg 108.862 kg GENERAL: The patient is alert and oriented x3, not in any acute distress. Well developed, well nourished. HEENT: Pupils are round and equally reacting to light. EOMI. No scleral icterus. No conjunctival pallor. Normocephalic, atraumatic. No pharyngeal erythema. No thyromegaly. CARDIOVASCULAR: S1 and S2 present. No murmurs, rubs, or gallops. PULMONARY: Chest is clear to auscultation, no wheezing or crackles. ABDOMEN: Soft, nontender, nondistended, normoactive bowel sounds. No palpable organomegaly. MUSCULOSKELETAL: No joint swelling or deformity. EXTREMITIES: No cyanosis, clubbing, or pedal edema. NEUROLOGICAL: Gross neurological examination did not reveal any focal deficits. SKIN: No rashes. No petechiae Results CBC & Chem 7: 12/24/20 06:02 12/24/20 06:02 Labs: Abnormal Lab Results - Last 24 Hours (Table) 12/24/20 12/24/20 Range/Units 06:02 06:02 WBC 19.6 H (3.8-10.6) k/uL Neutrophils # 17.2 H (1.3-7.7) k/uL Sodium 135 L (137-145) mmol/L Glucose 105 H (74-99) mg/dL Calcium 10.4 H (8.4-10.2) mg/dL Magnesium 1.5 L (1.6-2.3) mg/dL Total Bilirubin 1.9 H (0.2-1.3) mg/dL Alkaline Phosphatase 150 H (38-126) U/L C-Reactive Protein 162.8 H (<10.0) mg/L Thrombosis Risk Factor Assmnt - Choose All That Apply Any of the Below Risk Factors Present?: Yes Each Factor Represents 1 point: Obesity (BMI >25), Serious lung disease incl. pneumonia (< 1month) Other Risk Factors: Yes Other congenital or acquired thrombophilia - If yes, enter type in comment: No Thrombosis Risk Factor Assessment Total Risk Factor Score: 2 Thrombosis Risk Factor Assessment Level: Low Risk Assessment and Plan Assessment: Bilateral lower lobe community-acquired pneumonia Sepsis secondary to above with leukocytosis, fever and tachycardia GERD History of asthma History of seizure History of depression, not an active issue Continue with Rocephin and Zithromax. Follow-up culture results. Plan: This is a pleasant 30 years old male who presents with bibasilar pneumonia. Follow-up culture results. Continue with Rocephin and Zithromax. Continue with normal saline. Pulmonary team consult Labs and medication were reviewed.. Continue same treatment. Continue with symptomatic treatment. Resume home medication. Monitor lytes and vitals. DVT and GI prophylaxis. Further recommendations depends on the clinical course of the patient DVT prophylaxis: Subcutaneous heparin GI Prophylaxis: Pepcid Prognosis is guarded
--- NOTE | 2020-12-24 14:35 | P.CNPUL ---
History of Present Illness Consult date: 12/24/20 Requesting physician: Christiano Canales Reason for consult: pneumonia Chief complaint: Off fever and shortness of breath. History of present illness: This is a 30-year-old white male with history of multiple medical problems including seizure disorder, GERD, depression, nonsmoker, history of asthma, patient presented with 2 days history of increased shortness of breath, cough, fever, but no chills, patient describes symptoms of worsening GERD and he had no seizure in the last 20 years. Chest x-ray showed minimal bibasilar infiltrates. Screening for coronary virus PCR was negative. Patient was noted to have temperature as high as 102.3, started on antibiotics empirically, in the form of Rocephin and Zithromax, and I was asked to see him on consultation. Patient was placed on 2 L nasal cannula, and O2 saturation was 93%. Patient denies any chest pain, denies any hemoptysis. Denies any recent exposure to any sick patient's or anyone with covid 19 infection. Review of Systems CONSTITUTIONAL: Positive fever, no malaise, no fatigue. HEENT: Negative CARDIOVASCULAR: No orthopnea, PND, no palpitations, no syncope. PULMONARY: As noted in HPI. GASTROINTESTINAL: History of severe GERD. Eyes negative NEUROLOGICAL: History of seizure disorder has not had a seizure in the last 20 years. HEMATOLOGICAL: Negative, no clotting bleeding or bruising GENITOURINARY: No dysuria frequency urgency or hematuria.. MUSCULOSKELETAL/RHEUMATOLOGICAL: Negative ENDOCRINE: Denies any polyuria or polydipsia. I curetted: Denies any symptoms of depression. Past Medical History Past Medical History: Asthma, GERD/Reflux, Pneumonia, Seizure Disorder Additional Past Medical History / Comment(s): Bronchitis, last seizure many years ago, gallstones, sinus allergies. History of Any Multi-Drug Resistant Organisms: None Reported Past Surgical History: No Surgical Hx Reported Past Anesthesia/Blood Transfusion Reactions: Unable to Obtain Additional Past Anesthesia/Blood Transfusion Reaction / Comment(s): Pt has never had surgery Smoking Status: Never smoker - Past Family History Father History Unknown: Yes Family Medical History: Unable to Obtain Additional Family Medical History / Comment(s): Pt does not know his father. Mother Family Medical History: Diabetes Mellitus Medications and Allergies Home Medications Medication Instructions Recorded Confirmed Type Loratadine [Claritin] 10 mg PO HS 07/11/17 12/24/20 History Montelukast [Singulair] 10 mg PO HS 10/18/17 12/24/20 History Cholecalciferol (Vitamin D3) 125 mcg PO HS 12/24/20 12/24/20 History [Vitamin D3 (5000 Iu)] Divalproex ER [Depakote ER] 500 mg PO BID 12/24/20 12/24/20 History Ergocalciferol [Vitamin D2 (1250 1,250 mcg PO TU 12/24/20 12/24/20 History Mcg = 64194 Iu)] Omeprazole 20 mg PO HS 12/24/20 12/24/20 History Allergies Allergy/AdvReac Type Severity Reaction Status Date / Time carbamazepine [From Tegretol] Allergy Rash/Hives Verified 12/24/20 07:16 Physical Exam Vitals: Vital Signs Temp Pulse Resp BP Pulse Ox 12/24/20 11:45 98 18 149/43 95 12/24/20 11:42 103 H 18 12/24/20 11:30 89 16 12/24/20 10:59 98.5 F 95 18 132/74 93 L 12/24/20 08:22 115 H 16 12/24/20 08:17 94 18 130/70 94 L 12/24/20 08:14 111 H 18 94 L 12/24/20 07:32 100.2 F H 115 H 18 113/66 95 12/24/20 06:13 102 F H 122 H 18 100/87 91 L 12/24/20 05:43 102.3 F H 120 H 18 126/74 94 L 12/24/20 05:20 101.4 F H 126 H 26 H 121/69 90 L Intake and Output 12/23/20 12/24/20 12/24/20 22:59 06:59 14:59 Other: Weight 108.862 kg 108.862 kg Physical Exam: Revealed a 30-year-old white male, pleasant, in no distress, on 2 L nasal cannula. Head: Atraumatic, normocephalic. HEENT:[ PERRLA, EOMI, nonicteric. Neck is supple.] [No neck masses.] [No thyromegaly.] [No JVD.] Chest: [Symmetrical chest expansion, fine crackles at the bases especially at the right base. No rhonchi no wheezes. Cardiac Exam: [Normal S1 and S2, no S3 gallop, no murmur.] Abdomen: [Soft, nontender, no megaly, no rebound, no guarding, normal bowel sounds.] Extremities: [No clubbing, no edema, no cyanosis.] Neurological Exam: [No focal neurologic deficit.] Alert oriented 3. Skin: No rashes. Psychiatric: Normal mood affect and normal mental status examination. Musculoskeletal: No deformities noted limitation range of motion. Results - Laboratory Findings CBC and BMP: 12/24/20 06:02 12/24/20 06:02 PT/INR, D-dimer PT 11.0 sec (9.0-12.0) 12/24/20 06:02 INR 1.0 (<1.2) 12/24/20 06:02 D-Dimer <0.17 mg/L FEU (<0.60) 12/24/20 06:02 Abnormal lab findings: Abnormal Labs 12/24/20 12/24/20 06:02 06:02 WBC 19.6 H Neutrophils # 17.2 H Sodium 135 L Glucose 105 H Calcium 10.4 H Magnesium 1.5 L Total Bilirubin 1.9 H Alkaline Phosphatase 150 H C-Reactive Protein 162.8 H - Diagnostic Findings Chest x-ray: image reviewed (As noted in HPI.) Assessment and Plan Assessment: Impression: Acute bilateral community-acquired pneumonia, strongly doubt aspiration pneumoni a. History of asthma, presently stable, in active. History of seizure disorder. History of depression. History of GERD. Recommendation: Agree with the present treatment plan including Zithromax and Rocephin. Resume home meds. GI and DVT prophylaxis. Consider discharge planning in the next 24 hours if he does not demonstrate any worsening in his pulmonary status, and no fever over the next 24 hours. We'll continue to follow. Time with Patient: Greater than 30
[2020-12-24] MEDS: HEPARIN SODIUM,PORCINE 5,000 UNIT/ML 1 ML VIAL SQ SCH (21:56)
[2020-12-24] MEDS: FAMOTIDINE 20 MG/2 ML VIAL IV SCH (21:56)
[2020-12-25] MEDS: SODIUM CHLORIDE 0.9% 1,000 ML IV SCH ×2 (03:35→17:56)
[2020-12-25 05:26] LABS: Basophils % (A) 0 %; Eosinophils # (A) 0.1 k/uL (0-0.7); Eosinophils % (A) 1 %; HCT 38.1 % (39.0-53.0); HGB 13.1 gm/dL (13.0-17.5); Lymphocytes # (A) 1.5 k/uL (1.0-4.8); Lymphocytes % (A) 8 %; MCHC 34.5 g/dL (31.0-37.0); MCV 84.1 fL (80.0-100.0); Mean Platelet Volume 6.8; Monocytes # (A) 0.8 k/uL (0-1.0); Monocytes % (A) 4 %; Neutrophils # (A) 17.4 k/uL (1.3-7.7); Neutrophils % (A) 87 %; Platelet Count 303 k/uL (150-450); RBC 4.53 m/uL (4.30-5.90); RDW 12.6 % (11.5-15.5); WBC 19.9 k/uL (3.8-10.6)
[2020-12-25] MEDS: IPRATROPIUM-ALBUTEROL 3 ML NEB INHALATION SCH ×4 (08:54→20:33)
[2020-12-25] MEDS: ALBUTEROL NEBULIZED 2.5 MG/3 ML INHALATION SCH (09:13)
[2020-12-25] MEDS: HEPARIN SODIUM,PORCINE 5,000 UNIT/ML 1 ML VIAL SQ SCH ×2 (09:42→21:33)
[2020-12-25] MEDS: AZITHROMYCIN 500 MG TAB PO SCH (09:42)
[2020-12-25] MEDS: FAMOTIDINE 20 MG/2 ML VIAL IV SCH ×2 (09:42→21:31)
--- NOTE | 2020-12-25 11:55 | P.PN ---
Subjective This is a pleasant 30 years old male with past medical history of asthma, GERD, pneumonia and seizure, depression, nonsmoker. He is a patient of Dr. Abdi Presented because of coughing, and dyspnea for 3 days ago. On admission he has a fever of 102.3. Labs showed leukocytosis of 19.6. Chest x-ray: By basilar patchy opacity which may be due to multifocal infection in the appropriate clinical setting Patient was diagnosed with Patient was diagnosed with community-acquired pneumonia, who was treated with ceftriaxone and azithromycin IV fluid. Patient showed interval improvement Patient feels much better and he feels he can go home soon. Pending pulmonary team to clear the patient for discharge after 24 hours with no fever per their recommendations Objective - Vital Signs Vital signs: Vital Signs Temp 98.0 F 12/25/20 02:00 Pulse 108 H 12/25/20 09:11 Resp 16 12/25/20 02:00 BP 125/74 12/25/20 02:00 Pulse Ox 94 L 12/25/20 02:00 Intake & Output 12/24/20 12/25/20 12/25/20 18:59 06:59 18:59 Weight 108.862 kg Other: Voiding Method Toilet Toilet # Voids 1 - Exam GENERAL: The patient is alert and oriented x3, not in any acute distress. Well developed, well nourished. HEENT: Pupils are round and equally reacting to light. EOMI. No scleral icterus. No conjunctival pallor. Normocephalic, atraumatic. No pharyngeal erythema. No thyromegaly. CARDIOVASCULAR: S1 and S2 present. No murmurs, rubs, or gallops. PULMONARY: Chest is clear to auscultation, no wheezing or crackles. ABDOMEN: Soft, nontender, nondistended, normoactive bowel sounds. No palpable organomegaly. MUSCULOSKELETAL: No joint swelling or deformity. EXTREMITIES: No cyanosis, clubbing, or pedal edema. NEUROLOGICAL: Gross neurological examination did not reveal any focal deficits. SKIN: No rashes. no petechiae. - Labs CBC & Chem 7: 12/25/20 04:25 12/24/20 06:02 Labs: Abnormal Lab Results - Last 24 Hours (Table) 12/24/20 12/25/20 Range/Units 06:02 04:25 WBC 19.9 H (3.8-10.6) k/uL Hct 38.1 L (39.0-53.0) % Neutrophils # 17.4 H (1.3-7.7) k/uL Procalcitonin 3.92 H (0.02-0.09) ng/mL Microbiology - Last 24 Hours (Table) 12/24/20 06:02 Blood Culture - Preliminary Blood No Growth after 24 hours Assessment and Plan Assessment: Bilateral lower lobe community-acquired pneumonia Sepsis secondary to above with leukocytosis, fever and tachycardia GERD History of asthma History of seizure History of depression, not an active issue Continue with Rocephin and Zithromax. Follow-up culture results. Plan: This is a pleasant 30 years old male who presents with bibasilar pneumonia. Follow-up culture results. Continue with Rocephin and Zithromax. Continue with normal saline. Pulmonary team consult Labs and medication were reviewed.. Continue same treatment. Continue with symptomatic treatment. Resume home medication. Monitor lytes and vitals. DVT and GI prophylaxis. Further recommendations depends on the clinical course of the patient DVT prophylaxis: Subcutaneous heparin GI Prophylaxis: Pepcid Prognosis is guarded
[2020-12-25] MEDS ORDERED: ALPRAZolam 0.5 MG TAB PO PRN (15:21)
--- NOTE | 2020-12-25 15:22 | P.PN ---
Subjective Progress Note Date: 12/25/20 Principal diagnosis: Community acquired pneumonia This is a 30-year-old white male with history of multiple medical problems including seizure disorder, GERD, depression, nonsmoker, history of asthma, patient presented with 2 days history of increased shortness of breath, cough, fever, but no chills, patient describes symptoms of worsening GERD and he had no seizure in the last 20 years. Chest x-ray showed minimal bibasilar infiltrates. Screening for coronary virus PCR was negative. Patient was noted to have temperature as high as 102.3, started on antibiotics empirically, in the form of Rocephin and Zithromax, and I was asked to see him on consultation. Patient was placed on 2 L nasal cannula, and O2 saturation was 93%. Patient denies any chest pain, denies any hemoptysis. Denies any recent exposure to any sick patient's or anyone with covid 19 infection. The patient is seen today 12/25/2020 in follow-up in the observation unit. He is currently up ambulating in his room. Awake and alert in no acute distress. He denies any worsening shortness of breath, cough or congestion. Doing quite a bit better today. He has been afebrile. Maintaining O2 saturation in the 90s on room air. Blood culture reveals no growth. White count 19.9. Hemoglobin 13.1. He has been maintained on ceftriaxone and azithromycin along with bronchodilators. Pepcid for GI prophylaxis. Heparin for DVT prophylaxis. 0.9 normal saline at 100 ML's per hour. Objective - Vital Signs Vital signs: Vital Signs Temp 98.0 F 12/25/20 02:00 Pulse 107 H 12/25/20 13:11 Resp 16 12/25/20 02:00 BP 125/74 12/25/20 02:00 Pulse Ox 94 L 12/25/20 02:00 Intake & Output 12/24/20 12/25/20 12/25/20 18:59 06:59 18:59 Weight 108.862 kg Other: Voiding Method Toilet Toilet # Voids 1 - Exam GENERAL EXAM: Alert, active, pleasant 30-year-old gentleman, regular, comfortable in no apparent distress. HEAD: Normocephalic. EYES: Normal reaction of pupils, equal size. NOSE: Clear with pink turbinates. THROAT: No erythema or exudates. NECK: No masses, no JVD. CHEST: No chest wall deformity. LUNGS: Equal air entry with faint crackles in the posterior bases CVS: S1 and S2 normal with no audible murmur, regular rhythm. ABDOMEN: No hepatosplenomegaly, normal bowel sounds, no guarding or rigidity. SPINE: No scoliosis or deformity SKIN: No rashes CENTRAL NERVOUS SYSTEM: No focal deficits, tone is normal in all 4 extremities. EXTREMITIES: There is no peripheral edema. No clubbing, no cyanosis. Peripheral pulses are intact. - Labs CBC & Chem 7: 12/25/20 04:25 12/24/20 06:02 Labs: Abnormal Lab Results - Last 24 Hours (Table) 12/24/20 12/25/20 Range/Units 06:02 04:25 WBC 19.9 H (3.8-10.6) k/uL Hct 38.1 L (39.0-53.0) % Neutrophils # 17.4 H (1.3-7.7) k/uL Procalcitonin 3.92 H (0.02-0.09) ng/mL Microbiology - Last 24 Hours (Table) 12/24/20 06:02 Blood Culture - Preliminary Blood No Growth after 24 hours Assessment and Plan Assessment: 1 Acute bilateral community-acquired pneumonia, doubt aspiration 2 History of mild intermittent chronic bronchial asthma, currently inactive in stable 3 History of seizure disorder, last seizure greater than 20 years ago 4 History of depression 5 History of gastroesophageal reflux disease Plan: The patient was seen and evaluated by Dr. Villegas He is cleared for discharge from the pulmonary standpoint Complete a course of antibiotics Follow-up with his PCP for follow-up chest x-ray I, the cosigning physician, performed a history & physical examination of the patient. Lungs sounds faint crackles in the posterior bases. Maintaining good O2 saturations in the 90s on room air. I discussed the assessment and plan of care with my nurse practitioner, Esperanza Ball. I attest to the above note as dictated by her.
[2020-12-25] MEDS ORDERED: PANTOPRAZOLE 40 MG TABLET PO SCH (21:00)
[2020-12-25] MEDS ORDERED: MONTELUKAST 10 MG TAB PO SCH (21:00)
[2020-12-25] MEDS: DIVALPROEX ER 500 MG TAB.ER.24H PO SCH (21:30)
[2020-12-26] MEDS: SODIUM CHLORIDE 0.9% 1,000 ML IV SCH ×2 (02:31→07:23)
[2020-12-26] MEDS: IPRATROPIUM-ALBUTEROL 3 ML NEB INHALATION SCH ×2 (07:18→11:27)
[2020-12-26] MEDS: AZITHROMYCIN 500 MG TAB PO SCH (07:23)
[2020-12-26] MEDS: FAMOTIDINE 20 MG/2 ML VIAL IV SCH (07:23)
[2020-12-26] MEDS: DIVALPROEX ER 500 MG TAB.ER.24H PO SCH (07:23)
[2020-12-26] MEDS: HEPARIN SODIUM,PORCINE 5,000 UNIT/ML 1 ML VIAL SQ SCH (08:08)
[2020-12-26] MEDS ORDERED: HEPARIN SODIUM,PORCINE/PF 5,000 UNIT/0.5 ML SYRINGE SQ SCH (09:00)
[2020-12-26 09:19] LABS: Basophils % (A) 0 %; Eosinophils # (A) 0.1 k/uL (0-0.7); Eosinophils % (A) 1 %; HCT 38.8 % (39.0-53.0); HGB 13.3 gm/dL (13.0-17.5); Lymphocytes # (A) 3.2 k/uL (1.0-4.8); Lymphocytes % (A) 23 %; MCHC 34.2 g/dL (31.0-37.0); MCV 84.8 fL (80.0-100.0); Mean Platelet Volume 6.2; Monocytes # (A) 0.6 k/uL (0-1.0); Monocytes % (A) 4 %; Neutrophils # (A) 9.8 k/uL (1.3-7.7); Neutrophils % (A) 70 %; Platelet Count 325 k/uL (150-450); RBC 4.57 m/uL (4.30-5.90); RDW 12.8 % (11.5-15.5)
[2020-12-26 09:26] VITALS: BP 130/79; RESP 18; TEMP 98.4
[2020-12-26 11:35] LABS: Glucose,Whole Blood 83 mg/dL (75-99)
[2020-12-26 11:41] VITALS: PULSE 92
--- NOTE | 2020-12-27 08:57 | P.DS ---
Providers Date of admission: 12/24/20 06:57 Attending physician: Catrina Choi Consults: 12/24/20 06:57 Consult Physician Routine Consulting Provider: Lisha Sullivan Consult Reason/Comments: hypoxia Do you want consulting provider notified?: Yes Primary care physician: Gage Abdi Hospital Course: Diagnoses: Bilateral lower lobe community-acquired pneumonia Sepsis secondary to above with leukocytosis, fever and tachycardia GERD History of asthma History of seizure History of depression, not an active issue Continue with Rocephin and Zithromax. Follow-up culture results. Hospital course: This is a pleasant 30 years old male with past medical history of asthma, GERD, pneumonia and seizure, depression, nonsmoker. He is a patient of Dr. Abdi Presented because of coughing, and dyspnea for 3 days ago. On admission he has a fever of 102.3. Labs showed leukocytosis of 19.6. Chest x-ray: By basilar patchy opacity which may be due to multifocal infection in the appropriate clinical setting Patient was diagnosed with community-acquired pneumonia, who was treated with ceftriaxone and azithromycin IV fluid. Patient showed interval improvement Patient has been evaluated by pluck separator. Patient himself improved since yesterday and was going to be discharged however he agrees to stay 1 more day, this morning patient was walking in the room, asymptomatic with no chest pain or dyspnea or coughing. Fever subsided more than 24 hours. Leukocytosis improving down to 14. Patient is very eager to go home today. Pulmonary team. For discharge Problems and management plan were discussed with the patient and he verbalized understanding and acceptance Patient was found stable and can be discharged home however he needs follow-up as an outpatient. Patient was instructed to follow up with PCP Dr. Abdi within one week and patient agrees. Also patient was instructed he needs to repeat his chest x-ray with his PCP and he agrees Also instructed to follow up with pluck separator Dr. Sullivan in 2-3 weeks and he agrees to call and make appointments Physical exam Gen: patient is a AAOx3, no distress CVS: S1-S2, RRR, no murmur Lungs: B/L CTA, no wheezing Abdomen: soft, no distention, no tenderness, positive bowel sounds Extremity: no leg edema or induration Time spent more than 35 minutes Patient Condition at Discharge: Fair Plan - Discharge Summary Discharge Rx Participant: No New Discharge Prescriptions: New Azithromycin [Zithromax] 500 mg PO DAILY 4 Days #4 tab Cefuroxime Axetil [Ceftin] 500 mg PO BID 7 Days #14 tab Continue Loratadine [Claritin] 10 mg PO HS Montelukast [Singulair] 10 mg PO HS Omeprazole 20 mg PO HS Divalproex ER [Depakote ER] 500 mg PO BID Ergocalciferol [Vitamin D2 (1250 Mcg = 21277 Iu)] 1,250 mcg PO TU Cholecalciferol (Vitamin D3) [Vitamin D3 (5000 Iu)] 125 mcg PO HS Discharge Medication List Loratadine [Claritin] 10 mg PO HS 07/11/17 [History] Montelukast [Singulair] 10 mg PO HS 10/18/17 [History] Cholecalciferol (Vitamin D3) [Vitamin D3 (5000 Iu)] 125 mcg PO HS 12/24/20 [History] Divalproex ER [Depakote ER] 500 mg PO BID 12/24/20 [History] Ergocalciferol [Vitamin D2 (1250 Mcg = 52614 Iu)] 1,250 mcg PO TU 12/24/20 [History] Omeprazole 20 mg PO HS 12/24/20 [History] Azithromycin [Zithromax] 500 mg PO DAILY 4 Days #4 tab 12/26/20 [Rx] Cefuroxime Axetil [Ceftin] 500 mg PO BID 7 Days #14 tab 12/26/20 [Rx] Follow up Appointment(s)/Referral(s): Gage Abdi MD [Primary Care Provider] - 12/30/20 11:30 am (This will be a televisit. Please call office prior to your appointment to set up. Thank you.) Lisha Sullivan MD [STAFF PHYSICIAN] - 2 Weeks Activity/Diet/Wound Care/Special Instructions: Heart healthy diet Activity is restricted till you see your doctor Discharge Disposition: HOME SELF-CARE
[2020-12-31] MEDS ORDERED: ERGOCALCIFEROL 1,250 MCG (50,000 IU) CAPSULE PO SCH (09:00)
== END 2020-12-26 13:12 | disposition home or self-care (01) | DRG 871 ==
LOC: EC 05:18 → 1SOBS 06:57 → 4SSUR 12-25 15:37
PROVIDERS: ADMIT Hospitalist; ATTEND Hospitalist
DX: A41.9 Sepsis, unspecified organism (principal); J18.9 Pneumonia, unspecified organism; F32.9 Major depressive disorder, single episode, unspecified; G40.909 Epilepsy, unspecified, not intractable, without status epilepticus; J45.909 Unspecified asthma, uncomplicated; K21.9 Gastro-esophageal reflux disease without esophagitis; R09.02 Hypoxemia; Z79.899 Other long term (current) drug therapy; Z83.3 Family history of diabetes mellitus; Z87.01 Personal history of pneumonia (recurrent); Z20.822 Contact with and (suspected) exposure to COVID-19; Z51.81 Encounter for therapeutic drug level monitoring
CPT/HCPCS: 36415; 71045; 80053; 83605; 83615; 83735; 84145; 85025; 85379; 85610; 85730; 86140; 87040; 87635; 93005; 94640; 96361; 96374; 96375; 99285

== ENCOUNTER 2022-09-18 22:57 | Inpatient (IN) | payer OTHER ==
[2022-09-18] MEDS ORDERED: IBUPROFEN 600 MG TAB PO STA (23:04)
[2022-09-18] MEDS ORDERED: ACETAMINOPHEN TAB 500 MG TAB PO STA (23:04)
[2022-09-18] MEDS ORDERED: SODIUM CHLORIDE 0.9% 1,000 ML IV STA ×2 (23:04)
[2022-09-18] MEDS ORDERED: diphenhydrAMINE 50 MG/ML 1 ML VIAL IVP STA (23:15)
[2022-09-18] MEDS ORDERED: VANCOMYCIN IV PER PHARMACY 1 EACH MISC MISCELLANE PRN (23:15)
[2022-09-18] MEDS ORDERED: DEXAMETHASONE SOD PHOSPHATE 10 MG/ML 1 ML VIAL IVP STA (23:15)
[2022-09-18] MEDS ORDERED: FAMOTIDINE 20 MG/2 ML VIAL IV STA (23:16)
[2022-09-18] MEDS ORDERED: diphenhydrAMINE 50 MG/ML 1 ML VIAL IVP PRN (23:16)
[2022-09-18] MEDS ORDERED: MORPHINE SULFATE 4 MG/ML SYRINGE IV PRN (23:16)
[2022-09-18] MEDS ORDERED: MORPHINE SULFATE 2 MG/ML SYRINGE IVP PRN (23:16)
--- NOTE | 2022-09-18 23:17 | ED ---
Fever HPI - General Chief Complaint: Skin/Abscess/Foreign Body Stated Complaint: Skin infection Time Seen by Provider: 09/18/22 22:59 Source: patient, RN notes reviewed, old records reviewed Mode of arrival: EMS Limitations: no limitations - History of Present Illness Initial Comments: This is a 31-year-old male to the emergency department for evaluation. Patient presents to 2-3 days of fever and significant painful itchy rash over face back and chest mildly on the arms. No known sick contacts no travel history was seen in urgent care today and a half ago for evaluation of similar. Patient has no known travel history no significant known sick contacts. Patient has no strange sexual contacts or IV drug abuse. MD Complaint: fever, malaise, weakness, other (Generalized body rash) -: days(s) Temperature Source: subjective Associated Symptoms: chills, myalgias, rash Treatments Prior to Arrival: none - Related Data Home Medications Medication Instructions Recorded Confirmed Loratadine [Claritin] 10 mg PO HS 07/11/17 12/24/20 Montelukast [Singulair] 10 mg PO HS 10/18/17 12/24/20 Cholecalciferol (Vitamin D3) 125 mcg PO HS 12/24/20 12/24/20 [Vitamin D3 (5000 Iu)] Divalproex ER [Depakote ER] 500 mg PO BID 12/24/20 12/24/20 Ergocalciferol [Vitamin D2 (1250 1,250 mcg PO TU 12/24/20 12/24/20 Mcg = 16845 Iu)] Omeprazole 20 mg PO HS 12/24/20 12/24/20 Previous Rx's Medication Instructions Recorded Azithromycin [Zithromax] 500 mg PO DAILY 4 Days #4 tab 12/26/20 cefUROXime axetiL [Ceftin] 500 mg PO BID 7 Days #14 tab 12/26/20 Allergies Allergy/AdvReac Type Severity Reaction Status Date / Time carbamazepine [From Tegretol] Allergy Rash/Hives Verified 12/24/20 07:16 Review of Systems ROS Statement: Those systems with pertinent positive or pertinent negative responses have been documented in the HPI. ROS Other: All systems not noted in ROS Statement are negative. Past Medical History Past Medical History: Asthma, Seizure Disorder Additional Past Medical History / Comment(s): Bronchitis, last seizure many years ago, gallstones, sinus allergies. History of Any Multi-Drug Resistant Organisms: None Reported Past Surgical History: No Surgical Hx Reported Past Anesthesia/Blood Transfusion Reactions: Unable to Obtain Additional Past Anesthesia/Blood Transfusion Reaction / Comment(s): Pt has never had surgery Past Psychological History: Depression Smoking Status: Never smoker Past Alcohol Use History: Rare Past Drug Use History: None Reported - Past Family History Father History Unknown: Yes Family Medical History: Unable to Obtain Additional Family Medical History / Comment(s): Pt does not know his father. Mother Family Medical History: Diabetes Mellitus General Exam Limitations: no limitations General appearance: alert, in no apparent distress Head exam: Present: atraumatic, normocephalic, normal inspection Eye exam: Present: normal appearance, PERRL, EOMI. Absent: scleral icterus, con junctival injection, periorbital swelling ENT exam: Present: normal exam, mucous membranes moist Neck exam: Present: normal inspection. Absent: tenderness, meningismus, lymphadenopathy Respiratory exam: Present: normal lung sounds bilaterally. Absent: respiratory distress, wheezes, rales, rhonchi, stridor Cardiovascular Exam: Present: normal rhythm, tachycardia, normal heart sounds. Absent: systolic murmur, diastolic murmur, rubs, gallop, clicks GI/Abdominal exam: Present: soft, normal bowel sounds. Absent: distended, tenderness, guarding, rebound, rigid Extremities exam: Present: normal inspection, full ROM, normal capillary refill. Absent: tenderness, pedal edema, joint swelling, calf tenderness Back exam: Present: normal inspection Neurological exam: Present: alert, oriented X3, CN II-XII intact Psychiatric exam: Present: normal affect, normal mood Skin exam: Present: warm, dry, intact, normal color, rash (Significant rash.Vesicles some ulcerations), erythema, urticaria, vesicles Course Vital Signs 09/18/22 22:59 Temperature 103.0 F H Pulse Rate 118 H Respiratory 20 Rate Blood Pressure 141/97 O2 Sat by Pulse 97 Oximetry - Reevaluation(s) Reevaluation #1: 09/18/22 23:49 Medical records reviewed Reevaluation #2: 09/19/22 00:36 Patient has no real change in symptoms although fever is improving Reevaluation #3: 09/19/22 00:36 Patient informed of results and questions are answered - Consultations Consultation #1: Spoke with sound who agrees to admit this patient Medical Decision Making - Medical Decision Making 31 male to the emergency department for evaluation patient Shahnaz for evaluation of diffuse generalized body rash severe and she and painful. Face back hands arms without travel. Patient is positive for significantly high fever and will be admitted for rule out bacteremia versus underlying severe viral illness. - Lab Data Result diagrams: 09/18/22 23:36 09/18/22 23:36 Lab Results 09/18/22 09/18/22 09/18/22 Range/Units 23:36 23:36 23:36 WBC 4.7 (3.8-10.6) k/uL RBC 4.10 L (4.30-5.90) m/uL Hgb 12.4 L (13.0-17.5) gm/dL Hct 33.9 L (39.0-53.0) % MCV 82.7 (80.0-100.0) fL MCH 30.1 (25.0-35.0) pg MCHC 36.4 (31.0-37.0) g/dL RDW 12.7 (11.5-15.5) % Plt Count 158 (150-450) k/uL MPV 7.7 PT 10.3 (9.0-12.0) sec INR 1.0 (<1.2) APTT 24.1 (22.0-30.0) sec Sodium 138 (137-145) mmol/L Potassium 3.6 (3.5-5.1) mmol/L Chloride 105 (98-107) mmol/L Carbon Dioxide 25 (22-30) mmol/L Anion Gap 8 mmol/L BUN 14 (9-20) mg/dL Creatinine 0.78 (0.66-1.25) mg/dL Est GFR (CKD-EPI)AfAm >90 (>60 ml/min/1.73 sqM) Est GFR (CKD-EPI)NonAf >90 (>60 ml/min/1.73 sqM) Glucose 92 (74-99) mg/dL Calcium 8.3 L (8.4-10.2) mg/dL Phosphorus 3.3 (2.5-4.5) mg/dL Magnesium 1.7 (1.6-2.3) mg/dL Total Bilirubin 0.9 (0.2-1.3) mg/dL AST 103 H (17-59) U/L ALT 104 H (4-49) U/L Alkaline Phosphatase 150 H (38-126) U/L Lactate Dehydrogenase 1352 H (313-618) U/L C-Reactive Protein 3.5 H (<1.0) mg/dL Total Protein 7.3 (6.3-8.2) g/dL Albumin 4.4 (3.5-5.0) g/dL - Radiology Data Radiology results: report reviewed (Chest x-rays negative for acute disease), image reviewed Disposition Clinical Impression: Fever, Weakness, Rash, Hepatitis, Dehydration Disposition: ADMITTED IP TO THIS [facility] Condition: Fair Is patient prescribed a controlled substance at d/c from ED?: No Referrals: Gage Abdi MD [Primary Care Provider] - 1-2 days Time of Disposition: 00:35
[2022-09-19] MEDS ORDERED: VANCOMYCIN 1,750 MG in SODIUM CHLORIDE 0.9% 500 ML 500 ML IVPB ONE ×2
[2022-09-19 00:02] LABS: HCT 33.9 % (39.0-53.0); HGB 12.4 gm/dL (13.0-17.5); MCH 30.1 pg (25.0-35.0); MCHC 36.4 g/dL (31.0-37.0); MCV 82.7 fL (80.0-100.0); Mean Platelet Volume 7.7; Platelet Count 158 k/uL (150-450); RDW 12.7 % (11.5-15.5); WBC 4.7 k/uL (3.8-10.6)
[2022-09-19 00:17] LABS: Partial Thromboplastin Time 24.1 sec (22.0-30.0); Prothrombin Time 10.3 sec (9.0-12.0)
[2022-09-19 00:18] LABS: ALT 104 U/L (4-49); AST 103 U/L (17-59); African American GFR (CKD) >90 (>60 ml/min/1.73 sqM); Albumin 4.4 g/dL (3.5-5.0); Alkaline Phosphatase 150 U/L (38-126); Anion Gap 8 mmol/L; Blood Urea Nitrogen 14 mg/dL (9-20); C Reactive Protein 3.5 mg/dL (<1.0); Calcium 8.3 mg/dL (8.4-10.2); Carbon Dioxide 25 mmol/L (22-30); Chloride 105 mmol/L (98-107); Glucose 92 mg/dL (74-99); LDH 1352 U/L (313-618); Magnesium 1.7 mg/dL (1.6-2.3); Non-African American GFR(CKD) >90 (>60 ml/min/1.73 sqM); Phosphorus 3.3 mg/dL (2.5-4.5); Potassium 3.6 mmol/L (3.5-5.1); Sodium 138 mmol/L (137-145); Total Bilirubin 0.9 mg/dL (0.2-1.3); Total Protein 7.3 g/dL (6.3-8.2)
--- NOTE | 2022-09-19 00:21 | XR ---
EXAMINATION TYPE: XR chest 1V portable DATE OF EXAM: 09/19/2022 COMPARISON: 12/24/2020 HISTORY: Fever TECHNIQUE: FINDINGS: There is no heart failure nor confluent pneumonic infiltrate. Costophrenic angles are clear . Bony thorax is intact. IMPRESSION: No active cardiopulmonary disease. There is clearing of the infiltrate and atelectasis at the lung bases compared to old exam.
[2022-09-19 00:49] LABS: Band Neutrophils % 23 %; Lymphocytes # (M) 1.93 k/uL (1.0-4.8); Monocytes # (M) 0.24 k/uL (0-1.0); Neutrophils % (M) 31 %; Nucleated Red Blood Cells 0 /100 WBC (0-0)
[2022-09-19 00:50] LABS: Reactive Lymphocytes Present; Total Cells Counted 200
[2022-09-19 01:40] LABS: Lactic Acid, Venous 1.3 mmol/L (0.7-2.0)
[2022-09-19] MEDS ORDERED: NALOXONE 0.4 MG/ML 1 ML VIAL IV PRN (01:47)
[2022-09-19] MEDS ORDERED: ONDANSETRON 4 MG/2 ML VIAL IVP PRN (01:47)
[2022-09-19] MEDS ORDERED: IBUPROFEN 400 MG TAB PO PRN (01:47)
--- NOTE | 2022-09-19 01:48 | US ---
EXAMINATION TYPE: US gallbladder DATE OF EXAM: 09/19/2022 COMPARISON: NONE CLINICAL HISTORY: fever. Patient states no pain. TECHNIQUE: Multiple sonographic images of the right upper quadrant are obtained. FINDINGS: EXAM MEASUREMENTS: Liver Length: 18.4 cm Gallbladder Wall: 0.2 cm CBD: 0.5 cm Right Kidney: 12.2 x 5.7 x 6.3 cm [employer] NOTES: Limited due to bowel gas and patient body habitus Pancreas: Obscured by bowel gas Liver: Enlarged in size. Coarse. Areas of focal fatty sparing seen adjacent to GB Gallbladder: wnl as visualized, limited Evidence for sonographic Umanzor's sign: neg CBD: wnl Right Kidney: No hydronephrosis or masses seen IMPRESSION: No gallstones or dilated ducts. There is probably some fatty infiltration of the liver. No ascites.
[2022-09-19] MEDS ORDERED: hydrOXYzine HCL 25 MG TAB PO ONE (02:00)
[2022-09-19] MEDS: SODIUM CHLORIDE 0.9% 1,000 ML IV SCH ×3 (02:11→22:45)
--- NOTE | 2022-09-19 04:17 | P.HPIM ---
History of Present Illness H&P Date: 09/19/22 Chief Complaint: rash 42 year old male with mild persistent asthma coming in today for evaluation of diffuse rash with papules. this has started 2- 3 days ago and has been getting worse, he got evaluated by an urgent care on Wednesday for which he was given some antibiotics, however he noticed that his rash was getting worse, the papules are involving mainly his face, head , scalp, upper chest and back and bilateral arms. denies any sick contact, denies any immunodeficient disease , denies any recent travel or hospital stay , denies any similar symptoms in the past. he denies any URI symptoms or diffuse body aches. the papules are itchy and some painful. he reports being unvaccinated against chicken pox. he has some around his mouth and possibly over his tongue. he is concerned regarding chicken pox or monkey pox blood work reviewed Constitutional: No acute distress, conversant, pleasant Eyes: Anicteric sclerae, moist conjunctiva, Pupils equal round reactive to light ENMT: NC/AT Oropharynx clear, no erythema, or exudates Neck: Supple, no masses, or JVD No carotid bruits No thyromegaly Lungs: Clear to auscultation Clear to percussion Normal respiratory effort, no accessory muscle use Cardiovascular: Heart regular in rate and rhythm, No murmurs, gallops, or rubs No peripheral edema Abdominal: Soft Nontender, no guarding, rebound or rigidity Abdomen moving with respiration Normoactive bowel sounds No hepatomegaly, No splenomegaly No palpable mass No abdominal wall hernia noted Skin: diffuse papulovesicular rash , with vesicle and papules with scabs. involving upper body over head and face, bilateral arms, chest and back Extremities: No digital cyanosis No clubbing Pedal pulses intact and symmetrical Radial pulses intact and symmetrical No calf tenderness Psychiatric: Alert and oriented to person, place and time Appropriate affect fair judgement Neuro Muscles Strength 5/5 in all 4 extremities Sensation to light touch grossly present throughout Cranial nerves II-XII grossly intact Lymphatics: no palpable cervical or supraclavicular lymph nodes 31 year old male presented with 2-3 days history of sudden onset diffuse pap ulovesicular rash over his upper body parts. diffuse papular rash with vesicles ID consult rule out chicken pox vs monkey pox symptomatic relief of pain or itching contact precautions mild persistent asthma duoneb prn full code DVT PPX mechanical Past Medical History Past Medical History: Asthma, Seizure Disorder Additional Past Medical History / Comment(s): Bronchitis, last seizure many years ago, gallstones, sinus allergies. History of Any Multi-Drug Resistant Organisms: None Reported Past Surgical History: No Surgical Hx Reported Past Anesthesia/Blood Transfusion Reactions: Unable to Obtain Additional Past Anesthesia/Blood Transfusion Reaction / Comment(s): Pt has never had surgery Past Psychological History: Depression Smoking Status: Never smoker Past Alcohol Use History: Rare Past Drug Use History: None Reported - Past Family History Father History Unknown: Yes Family Medical History: Unable to Obtain Additional Family Medical History / Comment(s): Pt does not know his father. Mother Family Medical History: Diabetes Mellitus Medications and Allergies Home Medications Medication Instructions Recorded Confirmed Type Loratadine [Claritin] 10 mg PO HS 07/11/17 12/24/20 History Montelukast [Singulair] 10 mg PO HS 10/18/17 12/24/20 History Cholecalciferol (Vitamin D3) 125 mcg PO HS 12/24/20 12/24/20 History [Vitamin D3 (5000 Iu)] Divalproex ER [Depakote ER] 500 mg PO BID 12/24/20 12/24/20 History Ergocalciferol [Vitamin D2 (1250 1,250 mcg PO TU 12/24/20 12/24/20 History Mcg = 72652 Iu)] Omeprazole 20 mg PO HS 12/24/20 12/24/20 History Azithromycin [Zithromax] 500 mg PO DAILY 4 Days #4 tab 12/26/20 Rx cefUROXime axetiL [Ceftin] 500 mg PO BID 7 Days #14 tab 12/26/20 Rx Allergies Allergy/AdvReac Type Severity Reaction Status Date / Time carbamazepine [From Tegretol] Allergy Rash/Hives Verified 12/24/20 07:16 Physical Exam Vitals: Vital Signs Temp Pulse Resp BP Pulse Ox 09/19/22 01:03 91 15 129/88 100 09/18/22 22:59 103.0 F H 118 H 20 141/97 97 Intake and Output 09/18/22 09/18/22 09/19/22 14:59 22:59 06:59 Other: Weight 108.862 kg Results CBC & Chem 7: 09/18/22 23:36 09/18/22 23:36 Labs: Abnormal Lab Results - Last 24 Hours (Table) 09/18/22 09/18/22 Range/Units 23:36 23:36 RBC 4.10 L (4.30-5.90) m/uL Hgb 12.4 L (13.0-17.5) gm/dL Hct 33.9 L (39.0-53.0) % Calcium 8.3 L (8.4-10.2) mg/dL AST 103 H (17-59) U/L ALT 104 H (4-49) U/L Alkaline Phosphatase 150 H (38-126) U/L Lactate Dehydrogenase 1352 H (313-618) U/L C-Reactive Protein 3.5 H (<1.0) mg/dL
[2022-09-19] MEDS: hydrOXYzine HCL 25 MG TAB PO SCH ×3 (08:42→22:43)
[2022-09-19] MEDS: FAMOTIDINE 20 MG/2 ML VIAL IV SCH ×2 (08:43→22:16)
[2022-09-19] MEDS: ACETAMINOPHEN TAB 325 MG TAB PO PRN ×3 (08:53→22:15)
[2022-09-19] MEDS ORDERED: VANCOMYCIN 1,500 MG in SODIUM CHLORIDE 0.9% 500 ML 500 ML IVPB SCH (09:00)
[2022-09-19 11:44] LABS: Hepatitis A Antibody IgM Nonreactive (Nonreactive); Hepatitis B Core IgM Nonreactive (Nonreactive); Hepatitis B Surface Antigen Nonreactive (Nonreactive); Hepatitis C IgG Antibody Reactive (Nonreactive)
[2022-09-19 13:54] LABS: Appearance,Urine Clear (Clear); Bilirubin,Urine Negative (Negative); Blood,Urine Negative (Negative); Color,Urine Yellow; Glucose,Urine (UA) Negative (Negative); Ketones,Urine Negative (Negative); Leukocyte Esterase,Urine Negative (Negative); Nitrite,Urine Negative (Negative); Protein,Urine Negative (Negative); Specific Gravity,Urine 1.027 (1.001-1.035)
--- NOTE | 2022-09-19 15:06 | P.PN ---
Progress Note - Text Progress Note Date: 09/19/22 Hospitalist Interval Note Patient seen and examined at bedside. Vital signs reviewed General: non toxic, no distress, appears at stated age Derm: warm, dry, multiple vesicles and papular rash mostly involving the face, bilateral arms and chest, with scabs Head: atraumatic, normocephalic, symmetric Eyes: EOMI, no lid lag, anicteric sclera Mouth: no lip lesion, mucus membranes moist Cardiovascular: S1S2 reg, no murmur, positive posterior tibial pulse bilateral, Lungs: CTA bilateral, no rhonchi, no rales , no accessory muscle use Abdominal: soft, nontender to palpation, no guarding, no appreciable organomegaly Ext: no gross muscle atrophy, no edema, no contractures Neuro: CN II-XI grossly intact, no focal neuro deficits Psych: Alert, oriented, appropriate affect Assessment/Plan: diffuse papular rash with vesicles -Likely viral in nature -Chickenpox more likely, versus monkeypox -We'll treat for Valtrex 1 g 3 times a day -ID consult -Supportive care, contact precautions mild persistent asthma duoneb prn This is an update note for patient , for full note on on this patient, see 09/19/22 at 4:16. There is no charge associated with this note.
[2022-09-19] MEDS: valACYclovir HCL 1,000 MG TABLET PO SCH ×2 (16:07→22:43)
--- NOTE | 2022-09-19 21:19 | P.CONS ---
History of Present Illness - Reason for Consult Consult date: 09/19/22 Rash and fever Requesting physician: Naresh Armenta - Chief Complaint Rash x few days - History of Present Illness Patient is a 31-year-old male with a past medical history significant for chronic hepatitis C untreated this patient currently denies having any IV drug use, patient mentioned he did develop what he described as possible folliculitis to the neck area for the patient did went to an urgent care with the patient was started on cephalexin after stopping the cephalexin patient has developed a rash to the face had as well as upper trunk area patient currently do not have any rash the palms and soles patient is complaining of significant itching associated with the rash patient denies high-grade fever or chills, however the patient did have a fever of 103F on arrival to the ER patient did have a normal white count, patient did have normal kidney function liver enzymes are elevated CRP was mildly elevated, urine has been negative hepatitis C antibodies was positive influenza RSV and covid was negative patient did have a chest x-ray reported negative for acute cardiopulmonary disease the patient was started on vancomycin and infectious disease was consulted for further management patient currently denies having any sore in his mouth or any difficulty swallowing denies having any joint swelling, the patient denies having any urethral drainage no diarrhea or any perirectal inflammation, patient mentioned he is for 6 years and no other sexual partner, currently unemployed taking care of their 2 kids and none of them has been sick Review of Systems Positive point has been mentioned in the HPI rest of the systems are negative Past Medical History Past Medical History: Asthma, Seizure Disorder Additional Past Medical History / Comment(s): Bronchitis, last seizure many years ago, gallstones, sinus allergies. History of Any Multi-Drug Resistant Organisms: None Reported Past Surgical History: No Surgical Hx Reported Past Anesthesia/Blood Transfusion Reactions: Unable to Obtain Additional Past Anesthesia/Blood Transfusion Reaction / Comm: Pt has never had surgery Past Psychological History: Depression Smoking Status: Never smoker Past Alcohol Use History: Rare Past Drug Use History: None Reported - Past Family History Father History Unknown: Yes Family Medical History: Unable to Obtain Additional Family Medical History / Comment(s): Pt does not know his father. Mother Family Medical History: Diabetes Mellitus Medications and Allergies Home Medications Medication Instructions Recorded Confirmed Type Loratadine [Claritin] 10 mg PO HS 07/11/17 09/19/22 History Montelukast [Singulair] 10 mg PO HS 10/18/17 09/19/22 History Omeprazole 20 mg PO HS 12/24/20 09/19/22 History Divalproex Sodium [Depakote] 500 mg PO BID 09/19/22 09/19/22 History valACYclovir HCL [Valtrex] 1,000 mg PO Q8H #21 tablet 09/22/22 Rx Allergies Allergy/AdvReac Type Severity Reaction Status Date / Time carbamazepine [From Tegretol] Allergy Rash/Hives Verified 09/19/22 11:33 Physical Exam Vitals: Vital Signs Temp Pulse Resp BP Pulse Ox 09/19/22 08:50 100.5 F H 103 H 17 148/82 98 09/19/22 01:03 91 15 129/88 100 09/18/22 22:59 103.0 F H 118 H 20 141/97 97 Intake and Output 09/18/22 09/19/22 09/19/22 22:59 06:59 14:59 Other: Weight 108.862 kg GENERAL DESCRIPTION: Middle-aged male lying in bed, no distress. No tachypnea or accessory muscle of respiration use. HEENT: Shows Pallor , no scleral icterus. Oral mucous membrane is dry. No pharyngeal erythema or thrush NECK: Trachea central, no thyromegaly. LUNGS: Unlabored breathing. Clear to auscultation anteriorly. No wheeze or crackle. HEART: S1, S2, regular rate and rhythm. No loud murmur ABDOMEN: Soft, no tenderness , guarding or rigidity, no organomegaly EXTREMITIES: No edema of feet. SKIN: Generalized maculopapular rash mostly to the forhead/face upper trunk no involvement of the palms and soles or lower extremity. NEUROLOGICAL: The patient is awake, alert, oriented x3, mood and affect normal. Results CBC & Chem 7: 09/20/22 04:34 09/20/22 04:34 Labs: Abnormal Lab Results - Last 24 Hours (Table) 09/18/22 09/18/22 Range/Units 23:36 23:36 RBC 4.10 L (4.30-5.90) m/uL Hgb 12.4 L (13.0-17.5) gm/dL Hct 33.9 L (39.0-53.0) % Calcium 8.3 L (8.4-10.2) mg/dL AST 103 H (17-59) U/L ALT 104 H (4-49) U/L Alkaline Phosphatase 150 H (38-126) U/L Lactate Dehydrogenase 1352 H (313-618) U/L C-Reactive Protein 3.5 H (<1.0) mg/dL Assessment and Plan (1) Fever Status: Acute Code(s): R50.9 - FEVER, UNSPECIFIED SNOMED Code(s): 687250817 (2) Rash Status: Acute Code(s): R21 - RASH AND OTHER NONSPECIFIC SKIN ERUPTION SNOMED Code(s): 130730121 Plan: 1patient is in the hospital generalized macular papular rash predominantly involving his upper trunk area and concern for possible drug rash to cephalexin as apparently the rash got worse after he started taking the cephalexin for possible folliculitis of the neck region versus rheumatological rash related to his chronic hepatitis C clinically doubt Monkey pox as the patient denies any homosexual activity or any new sexual partner and denies having any rectal or perirectal drainage, however disseminated herpetic infection not entirely excluded. 2we will obtain HSV DNA by PCR from one of the skin lesion and will also check herpes serology 3-we will also check SARAH, ANCA, complement factors, as well as hepatitis C RNA 4-continue with the vancomycin and Valtrex will add Solu-Medrol and see clinical response We will follow on clinical condition and cultures to further adjust medication if needed Thank you for this consultation will follow this patient with you Time with Patient: Greater than 30
[2022-09-19] MEDS: PANTOPRAZOLE 40 MG TABLET PO SCH (22:16)
[2022-09-19] MEDS: MONTELUKAST 10 MG TAB PO SCH (22:16)
[2022-09-19] MEDS: DIVALPROEX 500 MG TABLET.DR PO SCH (22:16)
[2022-09-19] MEDS: LORATADINE 10 MG TAB PO SCH (22:16)
[2022-09-19] MEDS: methylPREDNISolone SOD SUCCI 125 MG/2 ML VIAL IV SCH (23:40)
[2022-09-20] MEDS: ACETAMINOPHEN TAB 325 MG TAB PO PRN (05:28)
[2022-09-20] MEDS: methylPREDNISolone SOD SUCCI 125 MG/2 ML VIAL IV SCH ×3 (05:28→17:08)
[2022-09-20] MEDS: SODIUM CHLORIDE 0.9% 1,000 ML IV SCH ×2 (06:42→09:53)
[2022-09-20 09:40] LABS: African American GFR (CKD) 128.6 (60.0-200.0); Albumin 4.2 g/dL (3.8-4.9); Albumin/Globulin Ratio 1.6 (1.60-3.17); Anion Gap 10.7 mmol/L (10.00-18.00); BUN/Creat Ratio 12.69 Ratio (12.00-20.00); Blood Urea Nitrogen 11.5 mg/dL (9.0-27.0); Calcium 8.4 mg/dL (8.7-10.3); Carbon Dioxide 23.9 mmol/L (20.0-27.5); Globulin 2.6 g/dL (1.6-3.3); Non-African American GFR(CKD) 110.9 (60.0-200.0); Phosphorus 2.6 mg/dL (2.4-5.1); Potassium 4.5 mmol/L (3.5-5.5); Total Bilirubin 0.5 mg/dL (0.30-1.20); Total Protein 6.8 g/dL (6.2-8.2)
[2022-09-20] MEDS: FAMOTIDINE 20 MG/2 ML VIAL IV SCH ×2 (09:52→21:13)
[2022-09-20] MEDS: DIVALPROEX 500 MG TABLET.DR PO SCH ×2 (09:53→21:13)
[2022-09-20] MEDS: hydrOXYzine HCL 25 MG TAB PO SCH ×3 (09:53→21:13)
[2022-09-20] MEDS: valACYclovir HCL 1,000 MG TABLET PO SCH ×3 (09:53→21:13)
[2022-09-20 10:26] LABS: Basophils # (A) 0.07 X 10*3/uL (0.00-0.10); Basophils % (A) 0.8 %; Eosinophils # (A) 0.01 X 10*3/uL (0.04-0.35); Eosinophils % (A) 0.1 %; HCT 37.1 % (39.6-50.0); HGB 12.4 g/dL (13.0-17.0); Immature Grans, Automated 0.7 %; Lymphocytes # (A) 4.07 X 10*3/uL (0.90-5.00); Lymphocytes % (A) 44.4 %; MCHC 33.4 g/dL (32.0-37.0); MCV 86.7 fL (80.0-97.0); Mean Platelet Volume 9.8 fL (9.5-12.2); Monocytes % (A) 3.3 %; NRBC Per 100 WBC 0 /100 WBCS (0.0-0.0); Neutrophils # (A) 4.65 X 10*3/uL (1.80-7.70); Neutrophils % (A) 50.7 %; Platelet Count 158 X 10*3/uL (140-440); RBC 4.28 X 10*6/uL (4.40-5.60); RDW 12.4 % (11.5-14.5); WBC 9.16 X 10*3/uL (4.50-10.00)
--- NOTE | 2022-09-20 10:34 | P.PN ---
Subjective Progress Note Date: 09/20/22 Principal diagnosis: rash Hospital Course: 31-year-old male with history of chronic hep C presenting with new papulovesicular rash started initially on his face and now going down his body. He is complaining of significant itching. He has also been having fevers and chills. He is not vaccinated against varicella. Laboratory workup significant for mild transaminitis, elevated LDH and CRP. Hepatitis C IgG antibody is reactive. Right upper quadrant ultrasound did not show any gallstones or dilated ducts, probably some fatty infiltration of the liver. Patient was initially started on vancomycin, currently on Valtrex. ID consulted. Subjective: Patient seen and examined at bedside. Was acutely febrile overnight. Denies any worsening of rash. Denies any chest pain, shortness of breath, abdominal pain, urinary or bowel complaints. Pertinent positives and negatives as discussed above, a complete review of systems was performed and all other systems are negative. Vitals Signs Reviewed. General: non toxic, no distress, appears at stated age Derm: warm, dry, multiple vesicles and papular rash mostly involving the face, bilateral arms and chest, with scabs Head: atraumatic, normocephalic, symmetric Eyes: EOMI, no lid lag, anicteric sclera Mouth: no lip lesion, mucus membranes moist Cardiovascular: S1S2 reg, no murmur, positive posterior tibial pulse bilateral, Lungs: CTA bilateral, no rhonchi, no rales , no accessory muscle use Abdominal: soft, nontender to palpation, no guarding, no appreciable organomegaly Ext: no gross muscle atrophy, no edema, no contractures Neuro: CN II-XI grossly intact, no focal neuro deficits Psych: Alert, oriented, appropriate affect Assessment and Plan: Diffuse papular rash with vesicles Probable acute varicella-zoster Febrile syndrome Transaminitis History of chronic hep C -vasculitis also on differential given hx of hep c -treat with Valtrex 1 g 3 times a day -ID consult -Also on steroids -Supportive care, contact precautions -Infectious and autoimmune labs pending mild persistent asthma duoneb prn DVT ppx: Lovenox Code status: Full Code Anticipated discharge place: Home Anticipated discharge time: 1-2 days Objective - Vital Signs Vital signs: Vital Signs Temp 97.4 F L 09/20/22 08:00 Pulse 82 09/20/22 08:00 Resp 19 09/20/22 01:51 BP 121/73 12/25/22 08:00 Pulse Ox 98 09/20/22 08:00 FiO2 Intake & Output 09/19/22 09/20/22 09/20/22 18:59 06:59 18:59 Intake Total 130 2360 Balance 130 2360 Weight 108.862 kg Intake: Intake, IV Titration 130 1560 Amount Sodium Chloride 0.9% 1, 130 1560 000 ml @ 130 mls/hr IV . Q7H42M [facility] Rx#:[id number] Oral 800 Other: # Voids 3 - Labs CBC & Chem 7: 09/20/22 04:34 09/20/22 04:34 Labs: Abnormal Lab Results - Last 24 Hours (Table) 09/19/22 09/20/22 09/20/22 Range/Units 00:45 04:34 04:34 RBC 4.28 L (4.40-5.60) X 10*6/uL Hgb 12.4 L (13.0-17.0) g/dL Hct 37.1 L (39.6-50.0) % Immature Gran # 0.06 H (0.00-0.04) X 10*3/uL Eosinophils # 0.01 L (0.04-0.35) X 10*3/uL Glucose 153 H (70-110) mg/dL Calcium 8.4 L (8.7-10.3) mg/dL AST 89 H (14-35) U/L ALT 102 H (10-49) U/L Alkaline Phosphatase 156 H (41-126) U/L Hep C IgG Ab Reactive A (Nonreactive) Microbiology - Last 24 Hours (Table) 09/18/22 23:36 Blood Culture - Preliminary Blood No Growth after 24 hours
--- NOTE | 2022-09-20 15:11 | P.PN ---
Subjective Progress Note Date: 09/20/22 Principal diagnosis: Fever and rash Patient is a 31-year-old male presenting to the ER for evaluation of rash that apparently started on his face and his up to his upper trunk area the patient did have some fever and sore throat symptoms as per discussion with his on 09/20/2022 to obtain additional history, patient also tested positive for hepatitis C with RNA currently pending. On today's evaluation that is 09/20/2022, the patient fever has resolved and is afebrile today, patient still complaining of itching to his rash and no burning pain, rash on the face seems to be slightly drying out and no evidence of any extension of the rash on the trunk no rash on the palms and soles no lesion in the mouth or difficulty swallowing no chest pain shortness of breath or cough Objective - Vital Signs Vital signs: Vital Signs Temp 97.4 F L 09/20/22 08:00 Pulse 82 09/20/22 08:00 Resp 19 09/20/22 01:51 BP 121/73 09/20/22 08:00 Pulse Ox 98 09/20/22 08:00 FiO2 Intake & Output 09/19/22 09/20/22 09/20/22 18:59 06:59 18:59 Intake Total 130 2360 Balance 130 2360 Weight 108.862 kg Intake: Intake, IV Titration 130 1560 Amount Sodium Chloride 0.9% 1, 130 1560 000 ml @ 130 mls/hr IV . Q7H42M [facility] Rx#:[id number] Oral 800 Other: # Voids 3 - Exam GENERAL DESCRIPTION: An middle-aged male lying in bed in no distress RESPIRATORY SYSTEM: Unlabored breathing , decreased breath sounds at bases HEART: S1 S2 regular rate and rhythm , ABDOMEN: Soft , no tenderness EXTREMITIES: No edema feet skin: Maculopapular rash especially involving his face and neck and upper trunk seemed to be slightly drying out no new rash has been noticed - Labs CBC & Chem 7: 09/20/22 04:34 09/20/22 04:34 Labs: Abnormal Lab Results - Last 24 Hours (Table) 09/20/22 09/20/22 Range/Units 04:34 04:34 RBC 4.28 L (4.40-5.60) X 10*6/uL Hgb 12.4 L (13.0-17.0) g/dL Hct 37.1 L (39.6-50.0) % Immature Gran # 0.06 H (0.00-0.04) X 10*3/uL Eosinophils # 0.01 L (0.04-0.35) X 10*3/uL Glucose 153 H (70-110) mg/dL Calcium 8.4 L (8.7-10.3) mg/dL AST 89 H (14-35) U/L ALT 102 H (10-49) U/L Alkaline Phosphatase 156 H (41-126) U/L Microbiology - Last 24 Hours (Table) 09/18/22 23:36 Blood Culture - Preliminary Blood No Growth after 24 hours Assessment and Plan (1) Fever Current Visit: Yes Status: Acute Code(s): R50.9 - FEVER, UNSPECIFIED SNOMED Code(s): 749728409 (2) Rash Current Visit: Yes Status: Acute Code(s): R21 - RASH AND OTHER NONSPECIFIC SKIN ERUPTION SNOMED Code(s): 085823935 Plan: 1patient is in the hospital generalized macular papular rash predominantly involving his upper trunk area and concern for possible drug rash to cephalexin as apparently the rash got worse after he started taking the cephalexin for possible folliculitis of the neck region versus rheumatological rash related to his chronic hepatitis C clinically doubt Monkey pox as the patient denies any homosexual activity or any new sexual partner and denies having any rectal or perirectal drainage, however disseminated herpetic infection as well as acute varicella infectionnot entirely excluded. 2we will obtain VZV DNA by PCR from one of the skin lesion and will also check VZV serology 3-we will also check SARAH, ANCA, complement factors, as well as hepatitis C RNA 4-continue with the vancomycin and Valtrex along with Solu-Medrol and see clin ical response 5-airborn in contact isolation until the varicella is ruled out Patient care was discussed in detail with the who did have multiple questions and concerns and provided additional history Time with Patient: Greater than 30
[2022-09-20] MEDS ORDERED: VANCOMYCIN TROUGH DUE 1 EACH MISC MISCELLANE ONE (16:00)
[2022-09-20] MEDS: MONTELUKAST 10 MG TAB PO SCH (21:13)
[2022-09-20] MEDS: LORATADINE 10 MG TAB PO SCH (21:13)
[2022-09-20] MEDS: PANTOPRAZOLE 40 MG TABLET PO SCH (21:13)
[2022-09-21] MEDS: methylPREDNISolone SOD SUCCI 125 MG/2 ML VIAL IV SCH ×2 (00:34→06:01)
[2022-09-21] MEDS: valACYclovir HCL 1,000 MG TABLET PO SCH ×3 (08:43→21:29)
[2022-09-21] MEDS: DIVALPROEX 500 MG TABLET.DR PO SCH ×2 (08:44→21:28)
[2022-09-21] MEDS: ENOXAPARIN 40 MG/0.4 ML SYRINGE SQ SCH (08:44)
[2022-09-21] MEDS: hydrOXYzine HCL 25 MG TAB PO SCH ×3 (08:45→21:29)
[2022-09-21] MEDS: FAMOTIDINE 20 MG/2 ML VIAL IV SCH (08:48)
[2022-09-21] MEDS ORDERED: FAMOTIDINE 20 MG TAB PO SCH (09:15)
--- NOTE | 2022-09-21 10:25 | P.PN ---
Subjective Progress Note Date: 09/21/22 Principal diagnosis: rash Hospital Course: 31-year-old male with history of chronic hep C presenting with new papulovesicular rash started initially on his face and now going down his body. He is complaining of significant itching. He has also been having fevers and chills. He is not vaccinated against varicella. Laboratory workup significant for mild transaminitis, elevated LDH and CRP. Hepatitis C IgG antibody is reactive. Right upper quadrant ultrasound did not show any gallstones or dilated ducts, probably some fatty infiltration of the liver. Patient was initially started on vancomycin, currently on Valtrex. ID consulted. Labs pending. Subjective: Patient seen and examined at bedside. No fevers overnight. Has some new lesions of the lower extremties but not worsening. Denies any chest pain, shortness of breath, abdominal pain, urinary or bowel complaints. Pertinent positives and negatives as discussed above, a complete review of systems was performed and all other systems are negative. Vitals Signs Reviewed. General: non toxic, no distress, appears at stated age Derm: warm, dry, multiple vesicles and papular rash mostly involving the face, bilateral arms and chest, with scabs and different stages of healing Head: atraumatic, normocephalic, symmetric Eyes: EOMI, no lid lag, anicteric sclera Mouth: no lip lesion, mucus membranes moist Cardiovascular: S1S2 reg, no murmur, positive posterior tibial pulse bilateral, Lungs: CTA bilateral, no rhonchi, no rales , no accessory muscle use Abdominal: soft, nontender to palpation, no guarding, no appreciable organomegaly Ext: no gross muscle atrophy, no edema, no contractures Neuro: CN II-XI grossly intact, no focal neuro deficits Psych: Alert, oriented, appropriate affect Assessment and Plan: Diffuse papular rash with vesicles Probable acute varicella-zoster Febrile syndrome Transaminitis History of chronic hep C -vasculitis also on differential given hx of hep c -treat with Valtrex 1 g 3 times a day -ID consult -Also on steroids -Supportive care, contact precautions -Infectious and autoimmune labs pending mild persistent asthma duoneb prn DVT ppx: Lovenox Code status: Full Code Anticipated discharge place: Home Anticipated discharge time: today or tomorrow Objective - Vital Signs Vital signs: Vital Signs Temp 97.5 F L 09/21/22 07:31 Pulse 85 09/21/22 08:37 Resp 16 09/21/22 08:37 BP 137/80 09/21/22 07:31 Pulse Ox 92 L 09/21/22 07:31 FiO2 Intake & Output 09/20/22 09/21/22 09/21/22 18:59 06:59 18:59 Intake Total 650 1000 Balance 650 1000 Intake: Intake, IV Titration 650 Amount Sodium Chloride 0.9% 1, 650 000 ml @ 130 mls/hr IV . Q7H42M [facility] Rx#:[id number] Oral 1000 Other: Voiding Method Toilet - Labs CBC & Chem 7: 09/20/22 04:34 09/20/22 04:34 Labs: Abnormal Lab Results - Last 24 Hours (Table) 09/20/22 Range/Units 04:34 RBC 4.28 L (4.40-5.60) X 10*6/uL Hgb 12.4 L (13.0-17.0) g/dL Hct 37.1 L (39.6-50.0) % Immature Gran # 0.06 H (0.00-0.04) X 10*3/uL Eosinophils # 0.01 L (0.04-0.35) X 10*3/uL Microbiology - Last 24 Hours (Table) 09/18/22 23:36 Blood Culture - Preliminary Blood No Growth after 48 hours
[2022-09-21 13:10] LABS: HIV 2 AB Non-Reactive (Non-Reactive); HIV AB P24 Non-Reactive (Non-Reactive); HIV P24 AG Non-Reactive (Non-Reactive)
[2022-09-21 13:10] LABS: HSV I IgG Interp NEGATIVE (NEGATIVE); HSV II IgG Interp NEGATIVE (NEGATIVE)
--- NOTE | 2022-09-21 16:15 | P.PN ---
Subjective Progress Note Date: 09/21/22 Principal diagnosis: Fever and rash Patient is a 31-year-old male presenting to the ER for evaluation of rash that apparently started on his face and his up to his upper trunk area the patient did have some fever and sore throat symptoms as per discussion with his on 09/20/2022 to obtain additional history, patient also tested positive for hepatitis C with RNA currently pending. On today's evaluation that is 09/21/2022, the patient remains to be afebrile, patient rash has decreased in intensity itching and burning pain has improved as well, no new rash has been observed denies having any sores in the mouth or sore throat or joint swelling no chest pain shortness of breath or cough Objective - Vital Signs Vital signs: Vital Signs Temp 97.5 F L 09/21/22 07:31 Pulse 85 09/21/22 08:37 Resp 16 09/21/22 08:37 BP 137/80 09/21/22 07:31 Pulse Ox 92 L 09/21/22 07:31 FiO2 Intake & Output 09/20/22 09/21/22 09/21/22 18:59 06:59 18:59 Intake Total 650 1000 Balance 650 1000 Intake: Intake, IV Titration 650 Amount Sodium Chloride 0.9% 1, 650 000 ml @ 130 mls/hr IV . Q7H42M [facility] Rx#:[id number] Oral 1000 Other: Voiding Method Toilet - Exam GENERAL DESCRIPTION: An middle-aged male lying in bed in no distress RESPIRATORY SYSTEM: Unlabored breathing , decreased breath sounds at bases HEART: S1 S2 regular rate and rhythm , ABDOMEN: Soft , no tenderness EXTREMITIES: No edema feet skin: Maculopapular rash especially involving his face and neck and upper trunk seemed to be slightly drying out no new rash has been noticed - Labs CBC & Chem 7: 09/20/22 04:34 09/20/22 04:34 Labs: Microbiology - Last 24 Hours (Table) 09/18/22 23:36 Blood Culture - Preliminary Blood No Growth after 48 hours Assessment and Plan (1) Fever Current Visit: Yes Status: Acute Code(s): R50.9 - FEVER, UNSPECIFIED SNOMED Code(s): 416444137 (2) Rash Current Visit: Yes Status: Acute Code(s): R21 - RASH AND OTHER NONSPECIFIC SKIN ERUPTION SNOMED Code(s): 204903070 Plan: 1patient is in the hospital generalized macular papular rash predominantly involving his upper trunk area and concern for possible drug rash to cephalexin as apparently the rash got worse after he started taking the cephalexin for possible folliculitis of the neck region versus rheumatological rash related to his chronic hepatitis C clinically doubt Monkey pox as the patient denies any homosexual activity or any new sexual partner and denies having any rectal or perirectal drainage, however disseminated herpetic infection as well as acute varicella infectionnot entirely excluded. 2we're currently waiting for VZV DNA by PCR from one of the skin lesion as well as VZV serology 3- patient to continue with the Valtrex vancomycin Solu-Medrol has been discontinued discussed with the admitting team Time with Patient: Less than 30
[2022-09-21] MEDS: FAMOTIDINE 20 MG TAB PO SCH (21:28)
[2022-09-21] MEDS: MONTELUKAST 10 MG TAB PO SCH (21:28)
[2022-09-21] MEDS: PANTOPRAZOLE 40 MG TABLET PO SCH (21:28)
[2022-09-21] MEDS: LORATADINE 10 MG TAB PO SCH (21:28)
[2022-09-22 08:56] VITALS: BP 107/61; PULSE 81; RESP 17; TEMP 97.5
[2022-09-22] MEDS: DIVALPROEX 500 MG TABLET.DR PO SCH (09:34)
[2022-09-22] MEDS: hydrOXYzine HCL 25 MG TAB PO SCH (09:34)
[2022-09-22] MEDS: valACYclovir HCL 1,000 MG TABLET PO SCH (09:34)
[2022-09-22] MEDS: FAMOTIDINE 20 MG TAB PO SCH (09:34)
[2022-09-22] MEDS: ENOXAPARIN 40 MG/0.4 ML SYRINGE SQ SCH (09:34)
--- NOTE | 2022-09-22 13:36 | P.DS ---
Providers Date of admission: 09/19/22 01:47 Expected date of discharge: 09/22/22 Attending physician: Lyric Trivedi MD Consults: 09/19/22 01:47 Consult Physician Routine Consulting Provider: Chapo Brock Consult Reason/Comments: rash,fever Do you want consulting provider notified?: Yes Primary care physician: Gage Abdi Hospital Course: Discharge Diagnosis: Diffuse papular rash with vesicles Probable acute varicella-zoster Febrile syndrome Transaminitis History of chronic hep C mild persistent asthma Hospital Course: 31-year-old male with history of chronic hep C presenting with new papulovesicular rash started initially on his face and now going down his body. He is complaining of significant itching. He has also been having fevers and chills. He is not vaccinated against varicella. Laboratory workup significant for mild transaminitis, elevated LDH and CRP. Hepatitis C IgG antibody is reactive. Right upper quadrant ultrasound did not show any gallstones or dilated ducts, probably some fatty infiltration of the liver. Patient was initially started on vancomycin, and steroids, currently on Valtrex. ID consulted. Autoimmune work up negative. Hep C RNA level still pending.VZV IgG was negative, but PCR swab of lesions still pending. However, patient improving with antivirals. HIV negative. HSV negative. Will discharge home with close follow up with PCP. Patient seen and examined at bedside. Vital signs reviewed and stable. General: non toxic, no distress, appears at stated age Derm: warm, dry, multiple vesicles and papular rash mostly involving the face, bilateral arms and chest, with scabs and different stages of healing Head: atraumatic, normocephalic, symmetric Eyes: EOMI, no lid lag, anicteric sclera Mouth: no lip lesion, mucus membranes moist Cardiovascular: S1S2 reg, no murmur, positive posterior tibial pulse bilateral, Lungs: CTA bilateral, no rhonchi, no rales , no accessory muscle use Abdominal: soft, nontender to palpation, no guarding, no appreciable organomegaly Ext: no gross muscle atrophy, no edema, no contractures Neuro: CN II-XI grossly intact, no focal neuro deficits Psych: Alert, oriented, appropriate affect A total of 39 minutes of time were spent preparing this complex discharge summary. Patient was discharged on 09/22/22 at 13:31. Patient Condition at Discharge: Fair Plan - Discharge Summary New Discharge Prescriptions: New valACYclovir HCL [Valtrex] 1,000 mg PO Q8H #21 tablet Continue Loratadine [Claritin] 10 mg PO HS Montelukast [Singulair] 10 mg PO HS Omeprazole 20 mg PO HS Divalproex Sodium [Depakote] 500 mg PO BID Discontinued Cephalexin [Keflex] 500 mg PO BID Benzoyl Peroxide [Benzac AC Wash] 1 applic TOPICAL DAILY Discharge Medication List Loratadine [Claritin] 10 mg PO HS 07/11/17 [History] Montelukast [Singulair] 10 mg PO HS 10/18/17 [History] Omeprazole 20 mg PO HS 12/24/20 [History] Divalproex Sodium [Depakote] 500 mg PO BID 09/19/22 [History] valACYclovir HCL [Valtrex] 1,000 mg PO Q8H #21 tablet 09/22/22 [Rx] Follow up Appointment(s)/Referral(s): Gage Abdi MD [Primary Care Provider] - 1-2 days Chapo Brock MD [STAFF PHYSICIAN] - 2 Weeks Patient Instructions/Handouts: Acute Rash (DC) Discharge Disposition: HOME SELF-CARE
--- NOTE | 2022-09-22 15:13 | P.PN ---
Subjective Progress Note Date: 09/22/22 Principal diagnosis: Fever and rash Patient is a 31-year-old male presenting to the ER for evaluation of rash that apparently started on his face and his up to his upper trunk area the patient did have some fever and sore throat symptoms as per discussion with his on 09/20/2022 to obtain additional history, patient also tested positive for hepatitis C with RNA currently pending. On today's evaluation that is 09/22/2022, the patient to be afebrile, patient rash has decreased in intensity and is crusting off, itching and burning pain has improved as well, no new rash has been reported by the patient, the patient denies having any sores in the mouth or sore throat or joint swelling no chest pain shortness of breath or cough, patient is feeling better Objective - Vital Signs Vital signs: Vital Signs Temp 97.5 F L 09/22/22 08:00 Pulse 81 09/22/22 08:00 Resp 17 09/22/22 08:00 BP 107/61 09/22/22 08:00 Pulse Ox 96 09/22/22 08:00 FiO2 Intake & Output 09/21/22 09/22/22 09/22/22 18:59 06:59 18:59 Other: Voiding Method Toilet Toilet # Voids 4 - Exam GENERAL DESCRIPTION: An middle-aged male lying in bed in no distress RESPIRATORY SYSTEM: Unlabored breathing , decreased breath sounds at bases HEART: S1 S2 regular rate and rhythm , ABDOMEN: Soft , no tenderness EXTREMITIES: No edema feet skin: Maculopapular rash especially involving his face and neck and upper trunk seemed to be crusting out no new rash has been noticed - Labs CBC & Chem 7: 09/20/22 04:34 09/20/22 04:34 Labs: Microbiology - Last 24 Hours (Table) 09/18/22 23:36 Blood Culture - Preliminary Blood No Growth after 72 hours Assessment and Plan (1) Fever Status: Acute Code(s): R50.9 - FEVER, UNSPECIFIED SNOMED Code(s): 872312488 (2) Rash Status: Acute Code(s): R21 - RASH AND OTHER NONSPECIFIC SKIN ERUPTION SNOMED Code(s): 784243848 Plan: 1patient is in the hospital generalized macular papular rash predominantly involving his upper trunk area and concern for possible drug rash to cephalexin as apparently the rash got worse after he started taking the cephalexin for possible folliculitis of the neck region versus rheumatological rash related to his chronic hepatitis C clinically doubt Monkey pox as the patient denies any homosexual activity or any new sexual partner and denies having any rectal or perirectal drainage, however disseminated herpetic infection as well as acute varicella infectionnot entirely excluded. 2we're currently waiting for VZV DNA by PCR from one of the skin lesion, VZV serology is negative 3- patient seemed to have shown clinical improvement and will continue with the Valtrex for 7 days on discharge prescription sent to the pharmacy, has multiple questions were answered on the phone, also discussed with the admitting physician working on discharge Time with Patient: Less than 30
[2022-09-23 13:50] LABS: C-ANCA <1:20 Titer (<1:20)
== END 2022-09-22 14:50 | disposition home or self-care (01) | DRG 596 ==
LOC: EC 22:57 → 4SSUR 09-19 01:47
PROVIDERS: ADMIT Internal Medicine; ATTEND Internal Medicine
DX: B02.9 Zoster without complications (principal); B01.9 Varicella without complication; B18.2 Chronic viral hepatitis C; Z79.899 Other long term (current) drug therapy; Z20.822 Contact with and (suspected) exposure to COVID-19; E86.0 Dehydration; F32.A Depression, unspecified; G40.909 Epilepsy, unspecified, not intractable, without status epilepticus; R74.01 Elevation of levels of liver transaminase levels; J45.30 Mild persistent asthma, uncomplicated; K76.0 Fatty (change of) liver, not elsewhere classified; L29.9 Pruritus, unspecified; Z87.19 Personal history of other diseases of the digestive system
CPT/HCPCS: 36415; 71045; 76705; 80053; 80074; 80202; 81003; 82140; 83605; 83615; 83690; 83735; 83880; 84100; 84484; 85025; 85610; 85652; 85730; 86038; 86140; 86160; 86162; 86255; 86308; 86694; 86695; 86696; 86787; 87040; 87390; 87522; 87529; 87636; 87798; 93005; 96361; 96365; 96366; 96367; 96368; 96375; 96376; 99285

== ENCOUNTER 2024-07-05 20:02 | Emergency (ER) | payer OTHER ==
--- NOTE | 2024-07-05 21:35 | XR ---
EXAMINATION TYPE: XR chest 2V DATE OF EXAM: 07/05/2024 8:42 PM CLINICAL INDICATION:Male, 33 years old with history of cough; [facility] COMPARISON: 09/19/2022 TECHNIQUE: XR chest 2V. Frontal and lateral views of the chest.. FINDINGS: Lines/Tubes/Devices: No indwelling lines are seen. Heart/mediastinum: Heart size is normal. Mediastinum appears normal. Pulmonary vascularity: Not increased, Lungs/Pleura: Lung volumes are diminished, with crowding of lung markings and minor bibasilar opaciti es likely on the basis of atelectasis. Otherwise no definite confluent consolidative process, sizable effusion, or pneumothorax demonstrated. Musculoskeletal: No acute osseous abnormality demonstrated in the limits of the exam. Other findings: None. IMPRESSION: Low lung volume exam with hypoventilatory changes. Otherwise no acute finding. [facility], , 07/05/2024 9:32 PM
--- NOTE | 2024-07-05 21:40 | ED ---
URI HPI - General Chief Complaint: Upper Respiratory Infection Stated Complaint: cough Time Seen by Provider: 07/05/24 20:25 Source: patient Mode of arrival: ambulatory Limitations: no limitations - History of Present Illness Initial Comments: 33-year-old male presenting with chief complaint of cough. Patient had a cold about a week ago and has had a persistent productive cough. No purulent sputum, ranges from clear to white. No fevers. Patient was seen by his PCP few days ago and given an inhaler, however his cough has still persisted. No difficulty breathing. No chest pain. Does admit to throat discomfort with his cough. - Related Data Home Medications Medication Instructions Recorded Confirmed Loratadine [Claritin] 10 mg PO HS 07/11/17 09/19/22 Montelukast [Singulair] 10 mg PO HS 10/18/17 09/19/22 Omeprazole 20 mg PO HS 12/24/20 09/19/22 Divalproex Sodium [Depakote] 500 mg PO BID 09/19/22 09/19/22 Previous Rx's Medication Instructions Recorded valACYclovir HCL [Valtrex] 1,000 mg PO Q8H #21 tablet 09/22/22 Benzonatate [Tessalon Perles] 100 mg PO TID PRN #9 capsule 07/05/24 Allergies Allergy/AdvReac Type Severity Reaction Status Date / Time carbamazepine [From Tegretol] Allergy Rash/Hives Verified 07/05/24 20:22 Review of Systems ROS Statement: Those systems with pertinent positive or pertinent negative responses have been documented in the HPI. ROS Other: All systems not noted in ROS Statement are negative. Past Medical History Past Medical History: Asthma, Seizure Disorder Additional Past Medical History / Comment(s): Bronchitis, last seizure many years ago, gallstones, sinus allergies. History of Any Multi-Drug Resistant Organisms: None Reported Past Surgical History: No Surgical Hx Reported Past Anesthesia/Blood Transfusion Reactions: Unable to Obtain Additional Past Anesthesia/Blood Transfusion Reaction / Comment(s): Pt has never had surgery Past Psychological History: Depression Smoking Status: Never smoker Past Alcohol Use History: Rare Past Drug Use History: None Reported - Past Family History Father History Unknown: Yes Family Medical History: Unable to Obtain Additional Family Medical History / Comment(s): Pt does not know his father. Mother Family Medical History: Diabetes Mellitus General Exam Limitations: no limitations General appearance: alert, in no apparent distress Head exam: Present: atraumatic, normocephalic, normal inspection Eye exam: Present: normal appearance, EOMI Neck exam: Present: normal inspection. Absent: meningismus Respiratory exam: Present: normal lung sounds bilaterally. Absent: respiratory distress, wheezes, rales, rhonchi, stridor Cardiovascular Exam: Present: regular rate, normal rhythm, normal heart sounds. Absent: systolic murmur, diastolic murmur, rubs, gallop, clicks Neurological exam: Present: alert, oriented X3 Psychiatric exam: Present: normal affect, normal mood Skin exam: Present: warm, dry Course Vital Signs 07/05/24 07/05/24 20:15 21:46 Temperature 97.8 F 98.5 F Pulse Rate 98 96 Respiratory 20 18 Rate Blood Pressure 148/83 141/83 O2 Sat by Pulse 96 96 Oximetry Medical Decision Making - Medical Decision Making Was pt. sent in by a medical professional or institution (, PA, BENCH ASSEMBLER, urgent care, hospital, or prison...) When possible be specific @ -No Did you speak to anyone other than the patient for history (EMS, parent, family, police, friend...)? What history was obtained from this source @ -No Did you review nursing and triage notes (agree or disagree)? Why? @ -I reviewed and agree with nursing and triage notes Were old charts reviewed (outside hosp., previous admission, EMS record, old EKG, old radiological studies, urgent care reports/EKG's, prison records)? Report findings @ -No old charts were reviewed Differential Diagnosis (chest pain, altered mental status, abdominal pain women, abdominal pain men, vaginal bleeding, weakness, fever, dyspnea, syncope, headache, dizziness, GI bleed, back pain, seizure, CVA, palpatations, mental health, musculoskeletal)? @ -Differential includes pneumonia, bronchitis, asthma, COPD, this is not an all-inclusive list EKG interpreted by me (3pts min.). @ -As above X-rays interpreted by me (1pt min.). @ -Chest x-ray shows low lung volume exam with hypoventilatory changes. Otherwise no acute finding. CT interpreted by me (1pt min.). @ -None done U/S interpreted by me (1pt. min.). @ -None done What testing was considered but not performed or refused? (CT, X-rays, U/S, labs)? Why? @ -None What meds were considered but not given or refused? Why? @ -None Did you discuss the management of the patient with other professionals (professionals i.e. , PA, BENCH ASSEMBLER, lab, RT, psych nurse, social work manager, staff educator, teacher, veterans service officer, case managers)? Give summary @ -No Was smoking cessation discussed for >3mins.? @ -No Was critical care preformed (if so, how long)? @ -No Were there social determinants of health that impacted care today? How? (Homelessness, low income, unemployed, alcoholism, drug addiction, transportation, low edu. Level, literacy, decrease access to med. care, [facility], rehab)? @ -No Was there de-escalation of care discussed even if they declined (Discuss DNR or withdrawal of care, Hospice)? DNR status @ -No What co-morbidities impacted this encounter? (DM, HTN, Smoking, COPD, CAD, Cancer, CVA, ARF, Chemo, Hep., AIDS, mental health diagnosis, sleep apnea, morbid obesity)? @ -None Was patient admitted / discharged? Hospital course, mention meds given and route, prescriptions, significant lab abnormalities, going to OR and other pertinent info. @ -33-year-old male presenting with chief complaint of persistent nonproductive cough. Afebrile. Heart lungs are clear to auscultation. Chest x-ray shows no consolidation. Patient treated for bronchitis with Luba Siegel. Educated on today's findings and supportive management. Discharged. Follow-up with PCP. Report back to ER with any new or worsening symptoms. Discussed return parameters and answered all questions. Patient conveyed verbal understanding and agreed to the plan. I discussed this case in detail with my attending Dr. Olivera Undiagnosed new problem with uncertain prognosis? @ -No Drug Therapy requiring intensive monitoring for toxicity (Heparin, Nitro, Insulin, Cardizem)? @ -No Were any procedures done? @ -No Diagnosis/symptom? @ -Bronchitis Acute, or Chronic, or Acute on Chronic? @ -Acute Uncomplicated (without systemic symptoms) or Complicated (systemic symptoms)? @ -Uncomplicated Side effects of treatment? @ -No Exacerbation, Progression, or Severe Exacerbation? @ -No Poses a threat to life or bodily function? How? (Chest pain, [place], NC, pneumonia, PE, COPD, DKA, ARF, appy, cholecystitis, CVA, Diverticulitis, Homicidal, Suicidal, threat to staff... and all critical care pts) @ -Unlikely at this time Disposition Clinical Impression: Bronchitis Disposition: HOME SELF-CARE Condition: Good Instructions (If sedation given, give patient instructions): Acute Bronchitis (ED) Additional Instructions: Follow-up with PCP. Report back to ER with any new or worsening symptoms. Take medication as prescribed. Prescriptions: Benzonatate [Tessalon Perles] 100 mg PO TID PRN #9 capsule PRN Reason: Cough Is patient prescribed a controlled substance at d/c from ED?: No Referrals: Gage Abdi MD [Primary Care Provider] - 1-2 days Time of Disposition: 21:39
[2024-07-05 21:48] VITALS: BP 141/83; PULSE 96; RESP 18; TEMP 98.5
== END 2024-07-05 21:48 | disposition home or self-care (01) ==
LOC: EC 20:02
CPT/HCPCS: 71046; 99283

== ENCOUNTER → 2024-09-13 | Outpatient (CLI) | payer OTHER ==
--- NOTE | 2024-09-14 11:44 | MM ---
Reason for Exam: Clinical finding. Patient History: Maternal uncle had breast cancer. Mother had ovarian cancer. Mother had breast cancer. Tissue Density: The breasts are almost entirely fatty. Findings: Analyzed By CAD. No evidence for mass or distortion. No Suspicious microcalcifications identified. No skin thickening evident. Overall Assessment: Negative, BI-RAD 1 Management: Clinical Management of both breasts. Results were given to the patient verbally at the time of exam. Patient should continue monthly self-breast exams. A clinical breast exam by your physician is recommended on an annual basis. This exam should not preclude additional follow-up of suspicious palpable abnormalities. Note on Jany scores and lifetime risk: 1. A Jany score greater than 3% is considered moderate risk. If this is the case, consider specialist referral to assess eligibility for a risk reducing agent. 2. If overall lifetime risk for the development of breast cancer is 20% or higher, the patient may qualify for future screening with alternating mammogram and breast MRI. [facility], , 09/13/2024 11:19 AM . Electronically signed and approved by: Rinku Eng M.D. Radiologis
== END | disposition home or self-care (01) ==
LOC: RADMAMWWP 10:59
PROVIDERS: ATTEND Family Medicine
DX: Z15.01 Genetic susceptibility to malignant neoplasm of breast (principal); Z80.3 Family history of malignant neoplasm of breast; R92.313 Mammographic fatty tissue density, bilateral breasts
CPT/HCPCS: 77066; G0279; 77062

== ENCOUNTER 2024-11-19 20:15 | Emergency (ER) | payer OTHER ==
[2024-11-19 20:43] VITALS: TEMP 99.4
--- NOTE | 2024-11-19 22:01 | ED ---
Fever HPI - General Chief Complaint: Fever Stated Complaint: FLU-LIKE SYMPTOMS Time Seen by Provider: 11/19/24 22:00 Source: patient, RN notes reviewed Mode of arrival: EMS Limitations: no limitations - History of Present Illness Initial Comments: 33-year-old male with history of asthma presenting for cough x 1 day with associated fever, sore throat, nasal congestion. Cough is productive. Denies chest pain or shortness of breath. Has tried nebulizer treatment with little relief. He is able to swallow and tolerate orals well. - Related Data Home Medications Medication Instructions Recorded Confirmed Loratadine [Claritin] 10 mg PO HS 07/11/17 09/19/22 Montelukast [Singulair] 10 mg PO HS 10/18/17 09/19/22 Omeprazole 20 mg PO HS 12/24/20 09/19/22 Divalproex Sodium [Depakote] 500 mg PO BID 09/19/22 09/19/22 Previous Rx's Medication Instructions Recorded valACYclovir HCL [Valtrex] 1,000 mg PO Q8H #21 tablet 09/22/22 Benzonatate [Tessalon Perles] 100 mg PO TID PRN #9 capsule 07/05/24 Oseltamivir [Tamiflu] 75 mg PO Q12HR #10 cap 11/20/24 predniSONE [Deltasone] 40 mg PO DAILY #10 tab 11/20/24 Allergies Allergy/AdvReac Type Severity Reaction Status Date / Time carbamazepine [From Tegretol] Allergy Rash/Hives Verified 11/19/24 20:43 Review of Systems ROS Statement: Those systems with pertinent positive or pertinent negative responses have been documented in the HPI. ROS Other: All systems not noted in ROS Statement are negative. Past Medical History Past Medical History: Asthma, Seizure Disorder Additional Past Medical History / Comment(s): Bronchitis, last seizure many years ago, gallstones, sinus allergies. History of Any Multi-Drug Resistant Organisms: None Reported Past Surgical History: No Surgical Hx Reported Past Anesthesia/Blood Transfusion Reactions: Unable to Obtain Additional Past Anesthesia/Blood Transfusion Reaction / Comment(s): Pt has never had surgery Past Psychological History: Depression Smoking Status: Never smoker Past Alcohol Use History: Rare Past Drug Use History: None Reported - Past Family History Father History Unknown: Yes Family Medical History: Unable to Obtain Additional Family Medical History / Comment(s): Pt does not know his father. Mother Family Medical History: Diabetes Mellitus General Exam Limitations: no limitations General appearance: alert, in no apparent distress Head exam: Present: atraumatic, normocephalic, normal inspection Eye exam: Present: normal appearance, PERRL, EOMI. Absent: scleral icterus, conjunctival injection, periorbital swelling ENT exam: Present: normal exam, normal oropharynx, mucous membranes moist, TM's normal bilaterally Respiratory exam: Present: normal lung sounds bilaterally. Absent: respiratory distress, wheezes, rales, rhonchi, stridor Cardiovascular Exam: Present: regular rate, normal rhythm, normal heart sounds. Absent: systolic murmur, diastolic murmur, rubs, gallop, clicks Neurological exam: Present: alert, oriented X3 Psychiatric exam: Present: normal affect, normal mood Skin exam: Present: warm, dry, intact, normal color. Absent: rash Course Vital Signs 11/19/24 11/19/24 11/19/24 20:37 22:33 22:37 Temperature 99.4 F Pulse Rate 119 H 112 H 114 H Respiratory 22 Rate Blood Pressure 121/65 O2 Sat by Pulse 95 Oximetry Medical Decision Making - Medical Decision Making Was pt. sent in by a medical professional or institution (, PA, STORE ASSISTANT, urgent care, hospital, or halfway...) When possible be specific @ -No Did you speak to anyone other than the patient for history (EMS, parent, family, police, friend...)? What history was obtained from this source @ -No Did you review nursing and triage notes (agree or disagree)? Why? @ -I reviewed and agree with nursing and triage notes Were old charts reviewed (outside hosp., previous admission, EMS record, old EKG, old radiological studies, urgent care reports/EKG's, halfway records)? Report findings @ -No old charts were reviewed Differential Diagnosis (chest pain, altered mental status, abdominal pain women, abdominal pain men, vaginal bleeding, weakness, fever, dyspnea, syncope, headache, dizziness, GI bleed, back pain, seizure, CVA, palpatations, mental health, musculoskeletal)? @ -Viral URI, influenza, COVID-19, RSV, pneumonia, asthma exacerbation EKG interpreted by me (3pts min.). @ -None X-rays interpreted by me (1pt min.). @ -Chest x-ray reveals underinflated lungs with small amount of bibasilar subsegmental atelectasis versus infiltrates similar to previous x-ray CT interpreted by me (1pt min.). @ -None done U/S interpreted by me (1pt. min.). @ -None done What testing was considered but not performed or refused? (CT, X-rays, U/S, labs)? Why? @ -None What meds were considered but not given or refused? Why? @ -None Did you discuss the management of the patient with other professionals (professionals i.e. , PA, STORE ASSISTANT, lab, RT, psych nurse, social worker clinical, zig zag spring machine operator, teacher, field artillery officer, director of casework)? Give summary @ -No Was smoking cessation discussed for >3mins.? @ -No Was critical care preformed (if so, how long)? @ -No Were there social determinants of health that impacted care today? How? (Homelessness, low income, unemployed, alcoholism, drug addiction, transportation, low edu. Level, literacy, decrease access to med. care, shelter, rehab)? @ -No Was there de-escalation of care discussed even if they declined (Discuss DNR or withdrawal of care, Hospice)? DNR status @ -No What co-morbidities impacted this encounter? (DM, HTN, Smoking, COPD, CAD, Cancer, CVA, ARF, Chemo, Hep., AIDS, mental health diagnosis, sleep apnea, morbid obesity)? @ -None Was patient admitted / discharged? Hospital course, mention meds given and route, prescriptions, significant lab abnormalities, going to OR and other pertinent info. @ -Discharge. 34-year-old male with history of asthma presenting for cough/fever x 1 day. Patient is tachycardic at 114 bpm, temperature is 99.4. Patient was provided with dose of Tylenol. Patient is influenza A positive. Chest x-ray similar to previous x-ray reveals no obvious infiltrates. Patient was given DuoNeb treatment and reports improvement of symptoms. Diagnosis of influenza discussed with patient. Given history of asthma, will prescribe course of steroids as well as Tamiflu. Appropriate return precautions and supportive care discussed. Case was discussed with my ED attending Dr. Monroy. Undiagnosed new problem with uncertain prognosis? @ -No Drug Therapy requiring intensive monitoring for toxicity (Heparin, Nitro, Insulin, Cardizem)? @ -No Were any procedures done? @ -No Diagnosis/symptom? @ -Influenza A Acute, or Chronic, or Acute on Chronic? @ -Acute Uncomplicated (without systemic symptoms) or Complicated (systemic symptoms)? @ -Uncomplicated Side effects of treatment? @ -No Exacerbation, Progression, or Severe Exacerbation? @ -No Poses a threat to life or bodily function? How? (Chest pain, [place], [place], pneumonia, PE, COPD, DKA, ARF, appy, cholecystitis, CVA, Diverticulitis, Homicidal, Suici angella, threat to staff... and all critical care pts) @ -No - Lab Data Lab Results 11/19/24 Range/Units 20:44 Influenza Type A (PCR) Detected A (Not Detectd) Influenza Type B (PCR) Not Detected (Not Detectd) RSV (PCR) Not Detected (Not Detectd) SARS-CoV-2 (PCR) Not Detected (Not Detectd) Disposition Clinical Impression: Influenza A Disposition: HOME SELF-CARE Condition: Stable Instructions (If sedation given, give patient instructions): Influenza (ED) Additional Instructions: Take Tylenol/ibuprofen as needed for pain/fever. Take steroids and Tamiflu as directed. Please return to the Emergency Department if symptoms worsen or any other concerns. Prescriptions: predniSONE [Deltasone] 40 mg PO DAILY #10 tab Oseltamivir [Tamiflu] 75 mg PO Q12HR #10 cap Is patient prescribed a controlled substance at d/c from ED?: No Referrals: aGge Abdi MD [Primary Care Provider] - 1-2 days Time of Disposition: 00:23
[2024-11-19] MEDS: ACETAMINOPHEN TAB 500 MG TAB PO STA (22:03)
[2024-11-19 22:07] LABS: Influenza A Detected (Not Detectd); Influenza B Not Detected (Not Detectd); RSV Not Detected (Not Detectd)
[2024-11-19] MEDS: IPRATROPIUM-ALBUTEROL 3 ML NEB INHALATION STA (22:33)
--- NOTE | 2024-11-20 00:06 | XR ---
EXAM: XR Chest, 2 Views CLINICAL HISTORY: XR Reason: cough, fever TECHNIQUE: Frontal and lateral views of the chest. COMPARISON: July 05, 2024 FINDINGS: Lungs: Underinflated lungs with small amount of bibasilar subsegmental atelectasis versus infiltrates, similar to previous. Mild atelectasis in the lower thoracic spine. Pleural space: Unremarkable. No pneumothorax. Heart: Unremarkable. No cardiomegaly. Mediastinum: Unremarkable. Normal mediastinal contour. Bones/joints: Unremarkable. No acute fracture. Upper abdomen: Unremarkable as visualized. No pneumoperitoneum under the diaphragm. IMPRESSION: Underinflated lungs with small amount of bibasilar subsegmental atelectasis versus infiltrates, similar to previous.
[2024-11-20 00:42] VITALS: BP 128/72; PULSE 112; RESP 20
== END 2024-11-20 00:30 | disposition home or self-care (01) ==
LOC: EC 20:15
DX: J10.1 Influenza due to other identified influenza virus with other respiratory manifestations (principal); Z88.8 Allergy status to other drugs, medicaments and biological substances
CPT/HCPCS: 71046; 87636; 94640; 99284

== ENCOUNTER 2025-01-20 21:44 | Emergency (ER) | payer OTHER ==
--- NOTE | 2025-01-20 22:38 | ED ---
General Adult HPI - General Chief complaint: Extremity Problem,Nontraumatic Stated complaint: Swollen Feet, Cough Time Seen by Provider: 01/20/25 22:04 Source: patient, RN notes reviewed, old records reviewed Mode of arrival: ambulatory Limitations: no limitations - History of Present Illness Initial comments: Is a 34-year-old male with past medical history remarkable for asthma who presents emergency department complaining of bilateral foot swelling. Has been ongoing for the last 2 days. Denies any shortness of breath, calf swelling, ca lf pain. No history of blood clots or congestive heart failure. No cardiac history. Went to urgent care yesterday who set up outpatient labs for the patient but he does not want to wait and wants to be evaluated. He is uncertain what is causing the swelling. Presents for further evaluation at this time. Denies chest pain or shortness of breath. Denies recent long distal travel. No history of blood clots. Does have history of asthma as well as seizure disorder. No worsening shortness of breath or coughing. No hypoxia. Presents for further evaluation at this time. - Related Data Home Medications Medication Instructions Recorded Confirmed Loratadine [Claritin] 10 mg PO HS 07/11/17 09/19/22 Montelukast [Singulair] 10 mg PO HS 10/18/17 09/19/22 Omeprazole 20 mg PO HS 12/24/20 09/19/22 Divalproex Sodium [Depakote] 500 mg PO BID 09/19/22 09/19/22 Previous Rx's Medication Instructions Recorded valACYclovir HCL [Valtrex] 1,000 mg PO Q8H #21 tablet 09/22/22 Benzonatate [Tessalon Perles] 100 mg PO TID PRN #9 capsule 07/05/24 Oseltamivir [Tamiflu] 75 mg PO Q12HR #10 cap 11/20/24 predniSONE [Deltasone] 40 mg PO DAILY #10 tab 11/20/24 Allergies Allergy/AdvReac Type Severity Reaction Status Date / Time carbamazepine [From Tegretol] Allergy Rash/Hives Verified 01/20/25 21:47 Review of Systems ROS Statement: Those systems with pertinent positive or pertinent negative responses have been documented in the HPI. Review of Systems: CONST: Denies fever EYES: Denies blurry vision ENT: Denies nasal congestion C/V: Denies Chest pain RESP: Denies shortness of breath GI: Denies abdominal pain : Denies dysuria SKIN: Denies rash. MSK: Endorses bilateral foot swelling NEURO: Denies headache ROS Other: All systems not noted in ROS Statement are negative. Past Medical History Past Medical History: Asthma, Seizure Disorder Additional Past Medical History / Comment(s): Bronchitis, last seizure many years ago, gallstones, sinus allergies. History of Any Multi-Drug Resistant Organisms: None Reported Past Surgical History: No Surgical Hx Reported Past Anesthesia/Blood Transfusion Reactions: Unable to Obtain Additional Past Anesthesia/Blood Transfusion Reaction / Comment(s): Pt has never had surgery Past Psychological History: Depression Smoking Status: Never smoker Past Alcohol Use History: Rare Past Drug Use History: None Reported - Past Family History Father History Unknown: Yes Family Medical History: Unable to Obtain Additional Family Medical History / Comment(s): Pt does not know his father. Mother Family Medical History: Diabetes Mellitus General Exam - General Exam Comments Initial Comments: General: Appears in no acute distress. HEAD: Normal with no signs of head trauma. EYES: EOMI ENT: Hearing grossly intact, normal oropharynx. RESPIRATORY: Clear breath sounds bilaterally. No wheezes, rales, or rhonchi. C/V: Regular rate and rhythm. S1 and S2 auscultated, no edema, peripheral pulses 2+ and intact throughout ABD: Abd is soft, nontender, nondistended EXT: Normal range of motion, no obvious deformity. Very mild if any bilateral foot swelling. No calf swelling. SKIN: No rashes or lesions observed on exposed skin. NEURO: Alert and oriented x 4. No focal deficits Limitations: no limitations Course Vital Signs 01/20/25 01/21/25 21:44 00:16 Temperature 97.7 F 98.2 F Pulse Rate 99 92 Respiratory 18 16 Rate Blood Pressure 154/90 140/78 O2 Sat by Pulse 97 98 Oximetry Medical Decision Making - Medical Decision Making Was pt. sent in by a medical professional or institution (JACQUELYN Flores, FELT PAD CUTTER, urgent care, hospital, or [facility]...) When possible be specific @ -No Did you speak to anyone other than the patient for history (EMS, parent, family, police, friend...)? What history was obtained from this source @ -No Did you review nursing and triage notes (agree or disagree)? Why? @ -I reviewed and agree with nursing and triage notes Were old charts reviewed (outside hosp., previous admission, EMS record, old EKG, old radiological studies, urgent care reports/EKG's, [facility] records)? Report findings @ -No old charts were reviewed Differential Diagnosis (chest pain, altered mental status, abdominal pain women, abdominal pain men, vaginal bleeding, weakness, fever, dyspnea, syncope, headache, dizziness, GI bleed, back pain, seizure, CVA, palpatations, mental health, musculoskeletal)? @ -DVT, dependent edema, CHF. This list is not all inclusive. EKG interpreted by me (3pts min.). @ -As above X-rays interpreted by me (1pt min.). @ -Chest x-ray reveals no evidence of pulmonary vascular congestion or other acute cardiopulmonary process. CT interpreted by me (1pt min.). @ -None done U/S interpreted by me (1pt. min.). @ -Ultrasound revealed no evidence of bilateral DVT. What testing was considered but not performed or refused? (CT, X-rays, U/S, labs)? Why? @ -None What meds were considered but not given or refused? Why? @ -None Did you discuss the management of the patient with other professionals (professionals i.e. , PA, FELT PAD CUTTER, lab, RT, psych nurse, social services counselor, hogshead weigher, teacher, financial aids officer, shoe caser)? Give summary @ -No Was smoking cessation discussed for >3mins.? @ -No Was critical care preformed (if so, how long)? @ -No Were there social determinants of health that impacted care today? How? (Homelessness, low income, unemployed, alcoholism, drug addiction, transportation, low edu. Level, literacy, decrease access to med. care, long term, rehab)? @ -No Was there de-escalation of care discussed even if they declined (Discuss DNR or withdrawal of care, Hospice)? DNR status @ -No What co-morbidities impacted this encounter? (DM, HTN, Smoking, COPD, CAD, Cancer, CVA, ARF, Chemo, Hep., AIDS, mental health diagnosis, sleep apnea, morbid obesity)? @ -None Was patient admitted / discharged? Hospital course, mention meds given and route, prescriptions, significant lab abnormalities, going to OR and other pertinent info. @ -Patient presents over concern for bilateral foot swelling. Exam is relatively unremarkable. Vital signs are within acceptable limits. We will obtain venous duplex ultrasound to rule out DVT as well as basic labs BNP and EKG and screening chest x-ray. Patient was in agreement this plan. Vital signs within acceptable limits. EKG shows no signs of acute ischemia.Patient is duplex ultrasound negative for DVT. Chest x-ray shows no evidence of pulmonary vascular congestion. Laboratory studies are all unremarkable, including BNP that is within normal limits. On reevaluation, I discussed results with patient. He will be discharged home at this time. Diagnosis is dependent edema. Recommended follow-up with his PCP. Discussed that he can elevate his feet, as well as use compression stockin gs at home. He was in agreement this plan. I instructed the patient to follow up with their PCP in the next 1-3 days. I explained that the patient should return to the emergency department if they experience any worsening symptoms. Strict return precautions were discussed with the patient. The patient expressed understanding of these instructions. I answered all questions that the patient had. The patient was discharged home in [good] condition with their prescriptions and follow up information. Undiagnosed new problem with uncertain prognosis? @ -No Drug Therapy requiring intensive monitoring for toxicity (Heparin, Nitro, Insulin, Cardizem)? @ -No Were any procedures done? @ -No Diagnosis/symptom? @ -Dependent edema Acute, or Chronic, or Acute on Chronic? @ -Acute Uncomplicated (without systemic symptoms) or Complicated (systemic symptoms)? @ -Uncomplicated Side effects of treatment? @ -None Exacerbation, Progression, or Severe Exacerbation] @ -No Poses a threat to life or bodily function? @ -Unlikely at this time - Lab Data Result diagrams: 01/20/25 22:30 01/20/25 22:30 Lab Results 01/20/25 01/20/25 Range/Units 22:30 22:30 WBC 9.38 (4.50-10.00) 10*3/uL RBC 4.88 (4.40-5.60) 10*6/uL Hgb 13.8 (13.0-17.0) g/dL Hct 40.5 (39.6-50.0) % MCV 83.0 (80.0-97.0) fL MCH 28.3 (27.0-32.0) pg MCHC 34.1 (32.0-37.0) g/dL Plt Count 282 (140-440) 10*3/uL MPV 8.0 L (9.5-12.2) fL Immature Gran % (Auto) 0.6 % Neutrophils % 53.7 % Lymphocytes % 33.3 % Monocytes % 9.2 % Eosinophils % 2.8 % Basophils % 0.4 % Immature Gran # 0.06 H (0.00-0.04) 10*3/uL Neutrophils # 5.04 (1.80-7.70) 10*3/uL Lymphocytes # 3.12 (0.90-5.00) 10*3/uL Monocytes # 0.86 (0.20-1.00) 10*3/uL Eosinophils # 0.26 (0.04-0.35) 10*3/uL Basophils # 0.04 (0.00-0.10) 10*3/uL Sodium 139 (137-145) mmol/L Potassium 3.6 (3.5-5.1) mmol/L Chloride 100 (98-107) mmol/L Carbon Dioxide 29 (22-30) mmol/L Anion Gap 10 mmol/L BUN 12 (9-20) mg/dL Creatinine 0.68 (0.66-1.25) mg/dL Est GFR (CKD-EPI)AfAm >90 (>60 ml/min/1.73 sqM) Est GFR (CKD-EPI)NonAf >90 (>60 ml/min/1.73 sqM) Glucose 101 H (74-99) mg/dL Calcium 9.2 (8.4-10.2) mg/dL NT-Pro-B Natriuret Pep <20 pg/mL - EKG Data -: EKG Interpreted by Me EKG Comments: 12-lead Electrocardiogram Interpretation Note EKG was reviewed and interpreted by myself. 12-lead ECG performed at 2227 is interpreted by me as revealing sinus tachycardia at a rate of 107 beats per minute. Stanton is normal. MT interval is 138 ms, QRS duration is 122 ms, QTc is 403 ms.. There were no ST or T wave abnormalities to suggest myocardial ischemia or injury. R wave progression across the precordium was satisfactory. By my interpretation this EKG is non-diagnostic for acute ischemia. Disposition Clinical Impression: Dependent edema Disposition: HOME SELF-CARE Condition: Good Additional Instructions: Your foot swelling appears to be from dependent edema. No signs of congestive heart failure or blood clots on today's evaluation. Workup was within normal limits. Follow-up with your PCP. Return if any worsening symptoms. Follow-up with your PCP in the next 1 to 3 days. Is patient prescribed a controlled substance at d/c from ED?: No Referrals: Gage Abdi MD [Primary Care Provider] - 1-2 days Time of Disposition: 00:14
[2025-01-20 22:45] LABS: Basophils # (A) 0.04 10*3/uL (0.00-0.10); Basophils % (A) 0.4 %; Eosinophils # (A) 0.26 10*3/uL (0.04-0.35); Eosinophils % (A) 2.8 %; HCT 40.5 % (39.6-50.0); HGB 13.8 g/dL (13.0-17.0); Lymphocytes # (A) 3.12 10*3/uL (0.90-5.00); Lymphocytes % (A) 33.3 %; MCH 28.3 pg (27.0-32.0); MCHC 34.1 g/dL (32.0-37.0); Monocytes # (A) 0.86 10*3/uL (0.20-1.00); Monocytes % (A) 9.2 %; Neutrophils # (A) 5.04 10*3/uL (1.80-7.70); Neutrophils % (A) 53.7 %; Platelet Count 282 10*3/uL (140-440); RBC 4.88 10*6/uL (4.40-5.60); RDW 13.1 % (11.5-14.5); WBC 9.38 10*3/uL (4.50-10.00)
[2025-01-20 23:14] LABS: African American GFR (CKD) >90 (>60 ml/min/1.73 sqM); Anion Gap 10 mmol/L; Blood Urea Nitrogen 12 mg/dL (9-20); Calcium 9.2 mg/dL (8.4-10.2); Carbon Dioxide 29 mmol/L (22-30); Chloride 100 mmol/L (98-107); Glucose 101 mg/dL (74-99); Non-African American GFR(CKD) >90 (>60 ml/min/1.73 sqM); Potassium 3.6 mmol/L (3.5-5.1); Sodium 139 mmol/L (137-145)
--- NOTE | 2025-01-20 23:17 | US ---
EXAMINATION TYPE: US venous doppler duplex LE BI DATE OF EXAM: 01/20/2025 11:03 PM COMPARISON: NONE CLINICAL INDICATION: Male, 34 years old with history of cough; Swollen feet, h/o CHF, diabetic, no h/ o dvt; leg swelling x 2 TECHNIQUE: The lower extremity deep venous system is examined utilizing real time linear array sonog diony with graded compression, color doppler sonography, and spectral doppler. SIDE PERFORMED: Bilateral FINDINGS: VESSELS IMAGED: Common Femoral Vein Deep Femoral Vein Greater Saphenous Vein * Femoral Vein Popliteal Vein Small Saphenous Vein * Proximal Calf Veins (* superficial vessels) Right Leg: Negative for DVT, Color Doppler imaging shows patency of the vessels. Spectral waveforms are within normal limits. Left Leg: Negative for DVT, Color Doppler imaging shows patency of the vessels. Spectral waveforms a re within normal limits. IMPRESSION: No ultrasound evidence for deep venous thrombosis. [facility], , 01/20/2025 11:15 PM
[2025-01-20 23:21] LABS: NT-Pro-B-Type Natriuretic Pept <20 pg/mL
--- NOTE | 2025-01-20 23:28 | XR ---
EXAMINATION TYPE: XR chest 2V DATE OF EXAM: 01/20/2025 CLINICAL INDICATION: Male, 34 years old with history of cough, TECHNIQUE: Frontal and lateral views of the chest are obtained. COMPARISON: Chest x-ray November 19, 2024 FINDINGS: There is no focal air space opacity, pleural effusion, or pneumothorax seen. The cardiac silhouette size is within normal limits. The osseous structures are intact. IMPRESSION: No acute peripheral airspace opacity. [facility], , 01/20/2025 11:26 PM
[2025-01-21 00:18] VITALS: BP 140/78; PULSE 92; RESP 16; TEMP 98.2
== END 2025-01-21 00:30 | disposition home or self-care (01) ==
LOC: EC 21:44
DX: R60.0 Localized edema (principal); G40.909 Epilepsy, unspecified, not intractable, without status epilepticus; J45.909 Unspecified asthma, uncomplicated; Z88.8 Allergy status to other drugs, medicaments and biological substances
CPT/HCPCS: 36415; 71046; 80048; 83880; 85025; 93005; 93970; 99284